=== PATIENT | female | born 1940 | race Caucasian/White ===

== ENCOUNTER 2025-02-21 13:00 | Outpatient (AMB) | payer OTHER, SELFPAY ==
--- NOTE | 2025-02-21 13:28 | A.OFFPC_ITS ---
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 Intake Note: New patient visit Supervisor [place] Required: No Accompanied by: Son Allergies No Known Allergies Allergy (Verified 02/21/25 13:33) Medication List - Last Reconciled 02/21/25 by Frances Ledezma PA-C apixaban (Eliquis) 5 mg PO BID biotin PO DAILY cholecalciferol (vitamin D3) PO DAILY furosemide 20 mg PO DAILY levothyroxine 125 mcg PO DAILY mecobalamin (vitamin B12) PO DAILY metoprolol succinate ER 50 mg PO DAILY simvastatin 20 mg PO BEDTIME Tobacco use date assessed: 02/21/25 Fall risk assessment: No Falls in past year Last assessed Fall Risk: 02/21/25 Dental Screening Dental Screen Date: 02/21/25 Did you have a dental visit in the last 12 months?: No Did you have a dental problem in the last 6 months where you did not have access to dental care?: No Was dental information given to patient?: Patient has dentist HPI 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 She has hx of htn, hld, afib, prior cva (approximately 2014), s/p partial colectomy due to colon cancer - no records yet -accompanied today by her son GI: nov 2024 had colon ca and s/p partial resection. Followed with Dr. Marcos. heme/onc: colon ca dx nov 2024- no further treatment. No records today but we will get me records. A release was signed today. CV: hx of afib on ac, bp today is 102/58. Patient's daughter states that she had an ablation within the year but got lost to follow up with Cardiology as she was doing most of her own visits by herself and there was some confusion around her diagnoses and treatment plans. She does not notice any palpitations or shortness on breath. She overall feels well. She believes she was following with [facility]. She is on metoprolol 50 mg daily, furosemide 20 mg daily , Eliquis 5 mg twice a day and is on simvastatin 20 mg. Unsure of when she last had labs. No frequent falls. Feels safe at home. Endo: Unaware of the diagnosis of hypothyroidism but on levothyroxine 125 mcg. Unsure of last TSH. [facility] Surgical History (Updated 02/21/25 @ 13:57 by Lucie Moon CMA) H/O gastric sleeve Family History (Updated 02/21/25 @ 13:56 by Lucie Moon CMA) Other Family history unknown Social History (Updated 02/21/25 @ 14:03 by Lucie Moon CMA) Housing: House Alcohol intake: current Patient Tobacco Use Status: Never used Tobacco e-Cigarette/Vaping Use: Never Used Second Hand Smoke Exposure: No service: No Current occupational status: retired Cognitive needs: No Hearing needs: No Vision needs: No Questionnaire PHQ-9 Over the last 2 weeks, how often have you been bothered by any of the following problems? 1. Little interest or pleasure in doing things: not at all 2. Feeling down, depressed, or hopeless: not at all 3. Trouble falling or staying asleep, or sleeping too much: not at all 4. Feeling tired or having little energy: several days 5. Poor appetite or overeating: not at all 6. Feeling bad about yourself - or that you are a failure or have let yourself or your family down: not at all 7. Trouble concentrating on things, such as reading the newspaper or watching television: not at all 8. Moving or speaking so slowly that other people could have noticed. Or the opposite - being so fidgety or restless that you have been moving around a lot more than usual: not at all 9. Thoughts that you would be better off or of hurting yourself in some way: not at all Total score: 1 Depression Screening Interpretation: Negative Depression Screening Done: Yes 81537 - PHQ-9 Billing: Yes Source: Developed by Drs. Doyle Christianson, Poonam Orozco, Alfonzo Piña and colleagues, with an educational leah from [employer]. Thrive Questionnaire Date Thrive assessed: 02/21/25 I am a: Patient What is your living situation today?: I have a steady place to live Within the past 12 months, did the food you bought not last and you didn't have the money to get more?: Never true Within the past 12 months, did you worry whether your food would run out before you got money to buy more?: Never true Do you have trouble paying for medicines?: Yes Do you have trouble getting transportation to medical appointments?: No Do you have trouble paying your heating and electricity bill?: No Do you have trouble taking care of your child, family member or friend?: No Do you have trouble with day-to-day activities such as bathing, preparing meals, shopping, managing finances, etc.?: No Are you currently unemployed and looking for a job?: No Are you interested in more education?: No Please select the resources that you would like help with: Paying for medicine Currently or been in a relationship where the following occur: No concerns reported THRIVE Score: 0 AUDIT C Alcohol Use Questionnaire (AUDIT-C) 1. How often do you have a drink containing alcohol?: 4 or more times a week 2. How many drinks containing alcohol do you have on a typical day when you are drinking?: 1 or 2 3. How often do you have six or more drinks on one occasion?: Never Total Score: 4 MARCELINA-7 AMB Questionnaire MARCELINA-7 Date MARCELINA - 7 assessed: 02/21/25 Feeling nervous, anxious, or on edge: 0 = Not at all Not being able to stop or control worryin = Not at all Worrying too much about different things: 0 = Not at all Trouble relaxin = Not at all Being so restless that it is hard to sit still: 0 = Not at all Becoming easily annoyed or irritable: 0 = Not at all Feeling afraid as if something awful might happen: 0 = Not at all Total MARCELINA-7 score (0-4 normal; 5-9 mild; 10-14 moderate; 15-21 severe): 0 Source: Developed by Drs. Doyle Christianson, Poonam Orozco, Alfonzo Piña and colleagues, with an educational leah from [employer]. MARCELINA-7 Assessment Billing MARCELINA-7 Assessment Tool: MARCELINA-7 Assessment 63204 Physical exam (Primary Care) Vital Signs: Last Vital Signs Temp 97.7 F 02/21/25 13:38 Pulse 67 02/21/25 13:38 Resp 14 05/07/25 13:38 BP 102/58 L 02/21/25 13:38 Pulse Ox 97 02/21/25 13:38 Oxygen Delivery Method Room Air 02/21/25 13:38 BMI result Body Mass Index 34.7 Tobacco/Smoking Status: Tobacco use Status Tobacco use date assessed 02/21/25 02/21/25 13:43 Patient Tobacco Use Status Never used Tobacco 02/21/25 14:03 e-Cigarette/Vaping Use Never Used 02/21/25 14:03 PHQ-9: PHQ-9 Score PHQ-9: Total score 1 02/21/25 14:00 Depression Screening Interpretation: Negative Thrive Assessment: Date of Thrive Assessment Date Thrive assessed 02/21/25 02/21/25 14:00 Currently or been in a relationship where the following occur: No concerns reported Const Orientation/consciousness: patient oriented x3 HENMT Ears: hearing grossly normal bilaterally Neck Thyroid: Thyroid normal Lymphatic: no lymphadenopathy noted Resp Auscultation: clear to auscultation bilaterally Cardio Rate: regular rate Rhythm: regular rhythm Heart sounds: S1 normal heart sound present, S2 normal heart sound present and Murmur heart sound present GI Inspection: Yes normal to inspection Palpation (GI): Soft to palpation and Other GI palpation findings present (nontender, no cva tenderness) Auscultation: normoactive bowel sounds Rectal Exam - Female: deferred Skin General skin exam: no rashes or lesions noted Neuro General: patient oriented x3, gait normal and no focal motor deficits Coding Level of Care Code New Pt Level 3 (36066) Complex EM visit Add On G2211 Diagnoses Afib I48.91 Dyslipidemia E78.5 Hypothyroid E03.9 HTN (hypertension) I10 Additional Codes MARCELINA-7 Assessment Billing - MARCELINA-7 Assessment Tool: MARCELINA-7 Assessment 16635 ([id number]) PHQ-9 - 98705 - PHQ-9 Billing: Yes ([id number]) Assessment & Plan Assessment & Plan (1) Afib: Code(s): I48.91 - Unspecified atrial fibrillation Category: Medical Plan: Referral back to [facility]iology. Did discuss with her that blood pressure is low end normal today. We will monitor. Short term follow up. Labs ordered. She will continue with her current regimen. Medications refilled. (2) Dyslipidemia: Code(s): E78.5 - Hyperlipidemia, unspecified Category: Medical Plan: As above (3) Hypothyroid: Code(s): E03.9 - Hypothyroidism, unspecified Category: Medical Plan: TSH ordered. Refilled levothyroxine 125 mcg (4) HTN (hypertension): Code(s): I10 - Essential (primary) hypertension Category: Medical Plan: Discussed that she is a little hypotensive today but we will monitor and recheck. Orders: Orders Hemoglobin A1c 02/21/25 E03.9 - Hypothyroidism, unspecified, E78.5 - Hyperlipidemia, unspecified, I10 - Essential (primary) hypertension, I48.91 - Unspecified atrial fibrillation, R73.01 - Impaired fasting glucose, Z85.038 - Personal history of other malignant neoplasm of large intestine Lipid Panel 02/21/25 E03.9 - Hypothyroidism, unspecified, E78.5 - Hyperlipidemia, unspecified, I10 - Essential (primary) hypertension, I48.91 - Unspecified atrial fibrillation, Z85.038 - Personal history of other malignant neoplasm of large intestine UA CC w/rflx Micro + Cult 02/21/25 E03.9 - Hypothyroidism, unspecified, E78.5 - Hyperlipidemia, unspecified, I10 - Essential (primary) hypertension, I48.91 - Unspecified atrial fibrillation, Z13.220 - Encounter for screening for lipoid disorders, Z85.038 - Personal history of other malignant neoplasm of large intestine Complete Blood Count Auto Diff 02/21/25 E03.9 - Hypothyroidism, unspecified, E78.5 - Hyperlipidemia, unspecified, I10 - Essential (primary) hypertension, I48.91 - Unspecified atrial fibrillation, Z85.038 - Personal history of other malignant neoplasm of large intestine Comprehensive Met. Panel 02/21/25 E03.9 - Hypothyroidism, unspecified, E78.5 - Hyperlipidemia, unspecified, I10 - Essential (primary) hypertension, I48.91 - Unspecified atrial fibrillation, Z85.038 - Personal history of other malignant neoplasm of large intestine TSH reflex Free T4 02/21/25 E03.9 - Hypothyroidism, unspecified, E78.5 - Hyperlipidemia, unspecified, I10 - Essential (primary) hypertension, I48.91 - Unspecified atrial fibrillation, Z85.038 - Personal history of other malignant neoplasm of large intestine Referrals Cardiology Referral E78.5 - Hyperlipidemia, unspecified, I10 - Essential (primary) hypertension, I48.91 - Unspecified atrial fibrillation Medications: New furosemide 20 mg PO DAILY 90 tabs 3RF levothyroxine 125 mcg PO DAILY 90 tabs 3RF simvastatin 20 mg PO BEDTIME 90 tabs 3RF apixaban (Eliquis) 5 mg PO BID 180 tabs 0RF metoprolol succinate ER 50 mg PO DAILY 90 tabs 2RF Patient Instructions: address:?[address] [place] [address] [address], [place] [address] Phone:? [facility] cardiology
[2025-02-21 13:38] VITALS: BP 102/58; PULSE 67; RESP 14; TEMP 36.5; O2SAT 97; BMI 34.7
--- OUTSIDE RECORDS SUMMARY | 2025-02-21 14:14 | XMS_ITS | Clinical Summary ---
Author Organization [facility] [address] [place] [address] [place] [phone] Phone Care Team Providers Care Analyst Market Intelligence Name Role Phone Unavailable Primary Care Provider Unavailabl e Allergies Active Allergy Reactions Criticality Noted Date Comments Codeine Headache 09/28/2006 Medications potassium chloride 20 mEq tablet extended release Take 1 tablet by mouth 1 (one) time each day. 4 Active cyclobenzaprine (FLEXERIL) 5 mg tablet Take 1 tablet (5 mg total) by mouth 3 (three) times a day if needed. 4 Active calcium carbonate-vit D3-min 600 mg-10 mcg (400 unit) tablet Take 1 tablet by mouth 1 (one) time each day. 6 Active cyanocobalamin (VITAMIN B-12) 1,000 mcg tablet Take 1 tablet (1,000 mcg total) by mouth 1 (one) time each day. 6 Active ascorbic acid (VITAMIN C) 500 mg tablet Take 1 tablet (500 mg total) by mouth 1 (one) time each day. 2 Active glucosamine/chond ro griffin A/C/Mn (GLUCOSAMINE-MICHAEL DROITIN COMPLX ORAL) Take 1 capsule by mouth 1 (one) time each day. 6 Active multivitamin (Daily Multi-Vitamin) tablet Take 1 tablet by mouth 1 (one) time each day. 2 Active furosemide (LASIX) 20 mg tabletIndications :Paroxysmal atrial fibrillation (CMS/HCC V24, CMS/HCC V28),Essential (primary) hypertension TAKE 1 TABLET BY MOUTH TWICE A DAY 180 tablet 3 4 Active metoprolol succinate (TOPROL-XL) 50 mg 24 hr tablet Take 1 tablet (50 mg total) by mouth 1 (one) time each day. 90 tablet 1 4 Active amiodarone (PACERONE) 200 mg tablet Take 0.5 tablets (100 mg total) by mouth 1 (one) time each day. 90 tablet 1 4 Active levothyroxine (SYNTHROID, LEVOTHROID) 125 mcg tablet Take 1 tablet (125 mcg total) by mouth 1 (one) time each day. 90 tablet 1 4 Active apixaban (Eliquis) 5 mg tablet Take 1 tablet (5 mg total) by mouth 2 (two) times a day. 180 tablet 1 4 Active KLOR-CON 20 mEq CR tablet TAKE 1 TABLET BY MOUTH EVERY DAY 90 tablet 5 Active simvastatin (ZOCOR) 20 mg tablet Take 1 tablet (20 mg total) by mouth 1 (one) time each day. 90 tablet 5 Active Active Problems Problem Noted Date Diagnosed Date Lymphedema 06/12/2024 Snoring 06/12/2024 Lower leg edema 03/09/2024 Gait instability 11/04/2023 Iliotibial band syndrome of right side 4 Tendinitis involving right hip abductors 024 Trochanteric bursitis of right hip 11/04/2023 Atrial flutter (CMS/HCC V24, CMS/HCC V28) 2022 Overview (09/28/2024): Last Assessment & Plan: The patient has a history of paroxysmal atrial fibrillation for which she was started on antiarrhythmic therapy with amiodarone around the year 2015. The amiodarone had been successful in controlling her atrial fibrillation. However, more recently, the patient was noted to be in atrial flutter. As such, we attempted an antico cardioversion on 06/14/2023 which was successful in restoring a sinus rhythm. However, on today's visit, the patient was noted to be again in atrial flutter. Her heart rate is currently well controlled with the use of amiodarone and metoprolol. At this point, we will refer the patient for an evaluation with the electrophysiology service for consideration of a possible ablation given her recurrent atrial flutter despite a cardioversion attempt while on amiodarone. Hypertension 02/24/2022 Overview (09/28/2024): Last Assessment & Plan: The patient has a history of arterial hypertension. The patient's blood pressure today was noted to be well controlled. We'll continue the current antihypertensive medication regimen. Onychomycosis 09/08/2019 Hypothyroidism 10/03/2018 Chronic kidney disease (CKD) stage G3a/A1, moderately decreased glomerular filtration rate (GFR) between 45-59 mL/min/1.73 square meter and albuminuria creatinine ratio les* ([facility] V24, [facility] V28) 06/21/2018 Vitamin D deficiency 03/29/2018 Paroxysmal atrial fibrillation ([facility] V24, [facility] V28) 10/14/2016 Overview (09/28/2024): Last Assessment & Plan: The patient has a history of paroxysmal atrial fibrillation for which she was started on rhythm control therapy around the year 2015. The amiodarone has been successful in controlling her atrial fibrillation. She is also on rate control therapy with metoprolol. The patient is also on anticoagulation therapy with Eliquis 5 mg orally twice a day given her [id number] score of 6. As such, at this point, we will continue her current medication regimen. DJD (degenerative joint disease) of knee 015 Varicose veins of both lower extremities 009 Immunizations Name Administration Dates Next Due Influenza trivalent, 0.5mL (Fluad) 65yo and olde r 07/05/2023,08/04/2022 Pneumococcal conjugate 13 va lent (Prevnar 13, PCV13) 2mo and older 11/09/2017 Pneumococcal polysaccharide 23 valent (Pneumovax 23) 2yo and older 09/10/2015 Td Tetanus diptheria (Tdvax) 7yo and older 09/04 Surgical History Surgery Date Site/Laterality Comments TUBAL LIGATION PROCEDURE: HISTORICAL TUBAL LIGATION OTHER SURGICAL HISTORY PROCEDURE: HISTORY OTHER; COMMENT: lap band for bariatric surgery TONSILLECTOMY PROCEDURE: HISTORICAL TONSILLECTOMY HYSTERECTOMY PROCEDURE: HISTORICAL HYSTERECTOMY COLONOSCOPY 1998 PROCEDURE: HISTORICAL COLONOSCOPY; COMMENT: small rectal polyp COLONOSCOPY 04/28/2019 PROCEDURE: HISTORICAL COLONOSCOPY; COMMENT: negative screening exam. Medical History Medical History Date Comments History of squamous cell car cinoma of skin 07/30/2017 DX:History of squamous cell carcinoma of skin History of bariatric surgery 09/27/2018 DX: History of bariatric surgery; COMMENT: Lap band Chronic kidney disease (CKD) stage G3a/A1, moderately decreased glomerular filtration rate (GFR) between 45-59 mL/min/1.73 square meter and albuminuria creatinine ratio les* ([facility] V24, [facility] V28) 06/21/2018 DX:Chronic kidne y disease (CKD) stage G3a/A1, moderately decreased glomerular filtration rate (GFR) between 45-59 mL/min/1.73 square meter and albuminuria creatinine ratio less than 30 mg/g ([facility]) DJD (degenerative joint dise ase) of knee 09/10/2015 DX:DJD (degenerative joint d isease) of knee History of CVA (cerebrovascu lar accident) 11/09/2017 DX:History of CVA (cerebrova scular accident) Paroxysmal atrial fibrillati on ([facility] V24, [facility] V28) 10/14/2016 DX:Paroxysmal atrial fibril lation ([facility]) Varicose veins 08/27/2009 DX:Varicose vein s Vitamin D deficiency 03/29/2018 DX:Vitamin D deficiency Family History Medical History Relation Name Comments Breast cancer Neg Hx Relation Name Status Comments Father Mother Social History Tobacco Use Types Packs/Day Years Used Date Smoking Tobacco: Never Smokeless Tobacco: Never Alcohol Use Standard Drinks/Week Comments Yes 0 (1 standard drink = 0.6 oz pur e alcohol) Comments No Sex and Gender Information Value Date Recorded Sex Assigned at Not on file Legal Sex Female 12:23 PM EST Gender Identity Not on file Sexual Orientation Not on file Obstetrics History Para Term AB IAB SAB Ectopic Multiple Livin g Live Births 4 4 4 4 Date Outcome GA Total Labor Labor/2nd/3rd Weight Sex Type Anes PTL Xenia A1 A5 Name Clin Term Term Term Term Last Filed Vital Signs Vital Sign Reading Time Taken Comments Blood Pressure 126/49 08/15/2024 1:35 PM EDT Pulse 71 08/15/2024 1:35 PM EDT Temperature - - Respiratory Rate - - Oxygen Saturation - - Inhaled Oxygen Concentration - - Weight 91.2 kg (201 lb) 08/15/2024 1:35 PM EDT Height 167.6 cm (5' 6 ) 08/15/2024 1:35 PM EDT Body Mass Index 32.44 08/15/2024 1:35 PM EDT Plan of Treatment Health Maintenance Due Date Last Done Comments Zoster Vaccines (1 of 2) 1961 RSV Immunization Adult Patients (1 - 1-dose 75+ series) 2017 Depression Screening 09/26/2022 Falls Risk Assessment 09/26/2022 Medicare Annual Wellness Visit 09/26/2022 Social Influencers of Health Screening 09/26/2022 COVID-19 Vaccine ( season) 2024 10/22/2022, 01/22/2022, 08/15/2021, Additional history exists Hypertension/CHF/CAD Annual BMP Blood Test 06/09/2025 06/09/2024, 06/09/2024 Influenza Vaccine (Season Ended) 2025 07/05/2023, 08/04/2022, 07/30/2021, Additional history exists Cholesterol Screening (Lipid Panel) 05/11/2028 05/11/2023 DTaP,Tdap,and Td Vaccines (2 - Td or Tdap) 09/04/2030 09/04/2020 Osteoporosis Screening (Bone Density Screening) 11/11/2030 11/11/2020 Pneumococcal Vaccine: 50+ Years Completed 07/25/2020, 11/09/2017, 09/10/2015 HIB Vaccines Aged Out No longer eligi ble based on patient's age to complete this topic HPV Vaccines Aged Out No longer eligi ble based on patient's age to complete this topic Hepatitis A Vaccines Aged Out No long er eligible based on patient's age to complete this topic Hepatitis B Vaccines Aged Out No long er eligible based on patient's age to complete this topic IPV Vaccines Aged Out No longer eligi ble based on patient's age to complete this topic MMR Vaccines Aged Out No longer eligi ble based on patient's age to complete this topic Meningococcal ACWY Vaccine Aged Out N o longer eligible based on patient's age to complete this topic Meningococcal B Vaccine Aged Out No l onger eligible based on patient's age to complete this topic RSV Immunization Patients Under 20 months Aged Out No longer eligible based on patient's age to complete this topic Varicella Vaccines Aged Out No longer eligible based on patient's age to complete this topic Procedures Procedure Name Priority Date/Time Associated Diagnosis Comments ANNUAL BMP BLOOD TEST Routine 06/09/2024 LIPID PANEL Routine 05/11/2023 DXA BONE DENSITY STUDY 1+ SITS AXIAL SKEL Routine 11/11/2020 11:44 AM EST Bilateral primary osteoarthritis of knee from Last 3 Months or Most Recently Relevant to Health Maintenance Results * Annual BMP Blood Test (06/09/2024) Annual BMP Blood Test Abstracted Historical Provider HEALTH MAINTENANCE Final Result * Lipid panel (05/11/2023) LDL/HDL Ratio 2 0 - 4 Triglycerides 117 0 - 150 mg/dL Cholesterol 142 0 - 200 mg/dL HDL 84 >=40 mg/dL LDL Cholesterol 35 0 - 100 mg/dL Blood Venous blood specimen / Unknown Historical Provider LAB BLOOD ORDERABLES Carmen l Result * DXA BONE DENSITY STUDY 1+ SITS AXIAL SKEL (11/11/2020 11:44 AM EST) Anatomical Region Laterality Modality Bone Densitometr y 09/04/2020 3:36 PM EST Narrative 11/11/2020 5:37 PM EST BONE DENSITY SCAN (DEXA): FINDINGS: Lumbar Spine L3 and L4, L1 and L2 excluded due to superimposed catheter tubing and reservoir from bariatric surgery. T-score is 0.8. ?? (SD relative to 20-29 y/o adult) Z-score is 3.5. ??(SD relative to age matched peers) This is considered normal by WHO criteria. Left Hip T-score is -0.2. Z-score is 2.1. This is considered normal by WHO criteria. Left Forearm T-score is 0.692. Z-score is 2.9. This is considered normal by WHO criteria. Comparison exam(s): None. IMPRESSION: IMPRESSION: ?? Normal bone mineral density by WHO criteria. FRAX scores not able to be calculated. The [facility] Department of Internal Medicine recommends using National Osteoporosis Foundation (NOF) guidelines in treatment decisions related to osteoporosis. NOF guidelines suggest considering treatment for postmenopausal women and men aged 50 or older presenting with the following: History of hip or vertebral fracture. T-score = -2.5 (DXA) at the femoral neck, total hip, or spine, after appropriate evaluation to exclude secondary causes. Low bone mass (T-score between -1.0 and -2.5 at the femoral neck or spine) AND a 10-year probability of a hip fracture = 3% OR a 10-year probability of a major osteoporosis-related fracture = 20% based on the [place]-adapted WHO algorithm Please note that all treatment decisions require clinical judgment and consideration of individual patient factors, including patient preferences, co-morbidities, previous drug use, risk factors not captured in the FRAX model (e.g., frailty, falls, vitamin D deficiency, increased bone turnover, interval significant decline in bone density) and possible under- or over-estimation of fracture risk by FRAX. Optional alternative screening schedule based on fabiano Glass., [facility] November 05, 2011 for patients with osteopenia (based on hip BMD T-score) is as follows: * ??advanced osteopenia (T scores -2.00 to -2.49), BMD testing every year * ??moderate osteopenia (T scores -1.50 to -1.99), BMD testing every 5 years mild osteopenia or normal BMD (T scores -1.50 and higher), BMD testing every 15 years Procedure Note Estefanía Sexton MD - 10/22/2022 BONE DENSITY SCAN (DEXA): FINDINGS: Lumbar Spine L3 and L4, L1 and L2 excluded due to superimposed cathetertubing and reservoir from bariatric surgery. T-score is 0.8. (SD relative to 20-29 y/o adult) Z-score is 3.5. (SD relative to age matched peers) This is considered normal by WHO criteria. Left Hip T-score is -0.2. Z-score is 2.1. This is considered normal by WHO criteria. Left Forearm T-score is 0.692. Z-score is 2.9. This is considered normal by WHO criteria. Comparison exam(s): None. IMPRESSION: IMPRESSION: Normal bone mineral density by WHO criteria. FRAX scores not able to be calculated. [facility] Department of Internal Medicine recommendsusing National Osteoporosis Foundation (NOF) guidelines in treatment decisions related toosteoporosis. NOF guidelines suggest considering treatment for postmenopausal women and menaged 50 or older presenting with the following: History of hip or vertebral fracture. T-score = -2.5 (DXA) at the femoral neck, total hip, or spine, afterappropriate evaluation to exclude secondary causes. Low bone mass (T-score between -1.0 and -2.5 at the femoral neck or spine)AND a 10-year probability of a hip fracture = 3% OR a 10-year probability of a majorosteoporosis-related fracture = 20% based on the [place]-adapted WHO algorithm Please note that all treatment decisions require clinical judgment andconsideration of individual patient factors, including patient preferences, co- morbidities,previous drug use, risk factors not captured in the FRAX model (e.g., frailty, falls, vitaminD deficiency, increased bone turnover, interval significant decline in bone density) andpossible under- or over-estimation of fracture risk by FRAX. Optional alternative screening schedule based on fabiano Glass., [facility] for patients with osteopenia (based on hip BMD T-score) is as follows: * advanced osteopenia (T scores -2.00 to -2.49), BMD testing every year * moderate osteopenia (T scores -1.50 to -1.99), BMD testing every 5years mild osteopenia or normal BMD (T scores -1.50 and higher), BMD testingevery 15 years Luly Castro MD Traci DXA PROCEDURES Carmen jorge Result from Last 3 Months or Most Recently Relevant to Health Maintenance Insurance [employer]ARE [employer]AGE
== END 2025-02-21 14:19 | disposition home or self-care (01) ==
LOC: HO.HMCFM 13:01
PROVIDERS: PCP Physician Assistant; Visit Provider Physician Assistant
DX: I48.91 Unspecified atrial fibrillation (principal); E78.5 Hyperlipidemia, unspecified; E03.9 Hypothyroidism, unspecified; I10 Essential (primary) hypertension

== ENCOUNTER → 2025-02-21 13:00 | Outpatient (BNVA) | payer OTHER, SELFPAY | PROVIDERS: PCP Physician Assistant; Visit Provider Physician Assistant | DX: Z76.89 Persons encountering health services in other specified circumstances (principal); I48.91 Unspecified atrial fibrillation; E78.5 Hyperlipidemia, unspecified; E03.9 Hypothyroidism, unspecified; I10 Essential (primary) hypertension; Z79.01 Long term (current) use of anticoagulants; Z79.899 Other long term (current) drug therapy | CPT/HCPCS: 96127 ==

== ENCOUNTER 2025-03-21 12:47 | Outpatient (AMB) | payer OTHER, SELFPAY ==
--- NOTE | 2025-03-21 13:04 | MHC.PC.OV ---
Vital Signs 03/21/25 13:06 Height 5 ft 1.81 in Weight 190 lb BMI 35.0 BP 104/58 L Blood Pressure Location Lt brachial Position Sitting Respiration 14 Pulse 69 Pulse Source Pulse Oximeter Pulse Oximetry (%) 97 Oxygen Delivery Method Room Air Intake Visit Reasons: bp Intake Note: Blood pressure follow up Human Resources District Manager Required: No Allergies codeine Allergy (Intermediate, Verified 03/21/25 13:05) Swelling Medication List - Last Reconciled 03/21/25 by Frances Ledezma PA-C apixaban (Eliquis) 5 mg PO BID biotin PO DAILY cholecalciferol (vitamin D3) PO DAILY ferrous sulfate ER mg PO furosemide 20 mg PO DAILY levothyroxine 125 mcg PO DAILY mecobalamin (vitamin B12) PO DAILY metoprolol succinate ER 50 mg PO DAILY simvastatin 20 mg PO BEDTIME Tobacco use date assessed: 03/21/25 Fall risk assessment: No Falls in past year Last assessed Fall Risk: 03/21/25 Dental Screening Dental Screen Date: 03/21/25 Did you have a dental visit in the last 12 months?: Yes Did you have a dental problem in the last 6 months where you did not have access to dental care?: No Was dental information given to patient?: Patient has dentist HPI bp HPI Details Pt is an 84 y/o female who presents today for a follow up. She has hx of htn, hld, afib, prior cva (approximately 2014), s/p partial colectomy due to colon cancer -she forgot to get labs done today GI: nov 2024 had colon ca and s/p partial resection. Followed with Dr. Marcos. She does not have a follow up scheduled with her to her knowledge. heme/onc: colon ca dx nov 2024- no further treatment. No records today but we will get me records. CV: hx of afib on ac, bp today is 104/58. Patient's daughter states that she had an ablation within the year but got lost to follow up with Cardiology as she was doing most of her own visits by herself and there was some confusion around her diagnoses and treatment plans. She does not notice any palpitations or shortness on breath. She overall feels well. She believes she was following with [facility]. She is on metoprolol 50 mg daily, furosemide 20 mg daily , Eliquis 5 mg twice a day and is on simvastatin 20 mg. Unsure of when she last had labs. No frequent falls. Feels safe at home. Endo: Unaware of the diagnosis of hypothyroidism but on levothyroxine 125 mcg. Unsure of last TSH. Mammo: Does not want PFSH Surgical History (Updated 02/21/25 @ 13:57 by Lucie Moon CMA) H/O gastric sleeve Family History (Updated 02/21/25 @ 13:56 by Lucie Moon CMA) Other Family history unknown Social History (Updated 02/21/25 @ 14:03 by Lucie Moon CMA) Housing: House Alcohol intake: current Patient Tobacco Use Status: Never used Tobacco e-Cigarette/Vaping Use: Never Used Second Hand Smoke Exposure: No service: No Current occupational status: retired Cognitive needs: No Hearing needs: No Vision needs: No Questionnaire Thrive Questionnaire Date Thrive assessed: 02/21/25 I am a: Patient What is your living situation today?: I have a steady place to live Within the past 12 months, did the food you bought not last and you didn't have the money to get more?: Never true Within the past 12 months, did you worry whether your food would run out before you got money to buy more?: Never true Do you have trouble paying for medicines?: Yes Do you have trouble getting transportation to medical appointments?: No Do you have trouble paying your heating and electricity bill?: No Do you have trouble taking care of your child, family member or friend?: No Do you have trouble with day-to-day activities such as bathing, preparing meals, shopping, managing finances, etc.?: No Are you currently unemployed and looking for a job?: No Are you interested in more education?: No Please select the resources that you would like help with: Paying for medicine Currently or been in a relationship where the following occur: No concerns reported THRIVE Score: 0 MARCELINA-7 AMB Questionnaire MARCELINA-7 Date MARCELINA - 7 assessed: 02/21/25 Source: Developed by Drs. Doyle Christianson, Poonam Orozco, Alfonzo Piña and colleagues, with an educational leah from [employer]. Physical exam (Primary Care) Vital Signs: Last Vital Signs Pulse 69 03/21/25 13:06 Resp 14 03/21/25 13:06 BP 104/58 L 03/21/25 13:06 Pulse Ox 97 03/21/25 13:06 Oxygen Delivery Method Room Air 03/21/25 13:06 BMI result Body Mass Index 35.0 Tobacco/Smoking Status: Tobacco use Status Tobacco use date assessed 02/21/25 02/21/25 13:43 Patient Tobacco Use Status Never used Tobacco 02/21/25 14:03 e-Cigarette/Vaping Use Never Used 02/21/25 14:03 Thrive Assessment: Date of Thrive Assessment Date Thrive assessed 02/21/25 02/21/25 14:00 Currently or been in a relationship where the following occur: No concerns reported Const Orientation/consciousness: patient oriented x3 HENMT Ears: hearing grossly normal bilaterally Neck Thyroid: Thyroid normal Lymphatic: no lymphadenopathy noted Resp Auscultation: clear to auscultation bilaterally Cardio Rate: regular rate Rhythm: regular rhythm Heart sounds: S1 normal heart sound present and S2 normal heart sound present GI Inspection: Yes normal to inspection Palpation (GI): Soft to palpation and Other GI palpation findings present (nontender, no cva tenderness) Auscultation: normoactive bowel sounds Rectal Exam - Female: deferred Skin General skin exam: no rashes or lesions noted Neuro General: patient oriented x3, gait normal and no focal motor deficits Coding Level of Care Code Est Pt Level 4 (06600) Complex EM visit Add On G2211 Diagnoses HTN (hypertension) I10 Hypothyroid E03.9 Dyslipidemia E78.5 Afib I48.91 History of colon cancer Z85.038 Assessment & Plan Assessment & Plan (1) HTN (hypertension): Code(s): I10 - Essential (primary) hypertension Category: Medical (2) Hypothyroid: Code(s): E03.9 - Hypothyroidism, unspecified Category: Medical (3) Dyslipidemia: Code(s): E78.5 - Hyperlipidemia, unspecified Category: Medical (4) Afib: Code(s): I48.91 - Unspecified atrial fibrillation Category: Medical (5) History of colon cancer: Code(s): Z85.038 - Personal history of other malignant neoplasm of large intestine Category: Medical Plan Reviewed note from [facility] with patient today in the office. She is not accompanied by any family members. She was provided the name, phone number and addresses of Cardiology and Colorectal surgery. She says that she does not need any assistance with booking these. She will get her labs done today. We will continue current regimen and follow up in a few months. Orders: Referrals Colon & Rectal Referral Z85.038 - Personal history of other malignant neoplasm of large intestine Patient Instructions: address:?[address] [place] [address] [address], [place] [address] Phone:? [facility] cardiology
[2025-03-21 13:06] VITALS: BP 104/58; PULSE 69; RESP 14; O2SAT 97; BMI 35.0
--- OUTSIDE RECORDS SUMMARY | 2025-03-21 13:13 | XMS_ITS | Clinical Summary ---
Author Organization [facility] [address] [place] [address] [place] [phone] Phone Care Team Providers Care Dot Etcher Name Role Phone Unavailable Primary Care Provider [...] creatinine ratio les* ([facility] V24, [facility] V28) 06/21/2018 Vitamin D deficiency 03/29/2018 Paroxysmal atrial fibrillation ([facility] V24, [facility] V28) 10/14/2016 Overview (09/28/2024): Last Assessment & [...] mg orally twice a day given her [id number]-RKSo score of 6. As such, at this [...] creatinine ratio les* ([facility] V24, [facility] V28) 06/21/2018 DX:Chronic kidne y disease (CKD) stage G3a/A1, moderately decreased glomerular filtration rate (GFR) between 45-59 mL/min/1.73 square meter and albuminuria creatinine ratio less than 30 mg/g ([facility]) DJD (degenerative joint dise ase) of knee 09/10/2015 DX:DJD (degenerative joint d isease) of knee History of CVA (cerebrovascu lar accident) 11/09/2017 DX:History of CVA (cerebrova scular accident) Paroxysmal atrial fibrillati on ([facility] V24, [facility] V28) 10/14/2016 DX:Paroxysmal atrial fibril lation ([facility]) Varicose veins 08/27/2009 DX:Varicose vein s Vitamin [...] scores not able to be calculated. The [facility] Department of Internal Medicine recommends using National [...] alternative screening schedule based on fabiano Glass., [facility] November 05, 2011 for patients with osteopenia [...] scores not able to be calculated. The [facility] Department of Internal Medicine recommendsusing National Osteoporosis [...] alternative screening schedule based on fabiano Glass., [facility]January 2011 for patients with osteopenia (based on [...]
== END 2025-03-21 13:29 | disposition home or self-care (01) ==
LOC: HO.HMCFM 12:48
PROVIDERS: PCP Physician Assistant; Visit Provider Physician Assistant
DX: I10 Essential (primary) hypertension (principal); E03.9 Hypothyroidism, unspecified; E78.5 Hyperlipidemia, unspecified; I48.91 Unspecified atrial fibrillation; Z85.038 Personal history of other malignant neoplasm of large intestine

== ENCOUNTER → 2025-03-21 12:47 | Outpatient (BNVA) | payer OTHER, SELFPAY | PROVIDERS: PCP Physician Assistant; Visit Provider Physician Assistant ==

== ENCOUNTER 2025-03-21 13:51 | Outpatient (REF) | payer OTHER, SELFPAY ==
[2025-03-21 17:53] LABS: MANUAL DIFF FLAG NO
[2025-03-21 18:10] LABS: Basophils Percent Auto 0.9 % (0-2); Eosinophils Absolute Auto 0.3 X10*3/uL (0.0-0.4); Hematocrit 37.8 % (37.0-47.0); Hemoglobin 11.7 g/dl (12.0-16.0); Imm Gran Abs Auto 0.01 X10*3/uL (0.00-0.03); Imm Gran Pct Auto 0.2 % (0.0-0.4); Lymphocytes Absolute Auto 1.3 X10*3/uL (1.2-4.9); Lymphocytes Percent Auto 27.4 % (20-40); Mean Corpuscular Hemoglobin 27.3 pg (27.0-33.0); Mean Corpuscular Volume 88.3 fL (80.0-98.0); Mean Platelet Volume 12.2 fL (9.4-12.3); Monocytes Absolute Auto 0.4 X10*3/uL (0.1-1.2); Monocytes Percent Auto 9.2 % (2-11); Neutrophils Absolute Auto 2.6 x10*3/uL (2.0-8.3); Neutrophils Percent Auto 56.3 % (45-73); Platelet Count 173 X10*3/uL (160-400); Red Blood Count 4.28 X10*6/uL (4.20-5.50); Red Cell Distribution Width 14.8 % (11.0-16.0); White Blood Count 4.7 X10*3/uL (4.8-10.8)
[2025-03-21 18:21] LABS: Estimated Average Glucose 103 mg/dL; Hemoglobin A1C 104.1098 umol/L; Hemoglobin A1c % 5.2 % (<6.0)
[2025-03-21 18:26] LABS: Appearance Urine Clear; Color Urine Yellow; Glucose Urine UA Negative (Negative); Leukocyte Esterase Urine Trace (Negative); Nitrite Urine Negative (Negative); PH 5.5 (5.0-9.0); Specific Gravity - Urine 1.015 (1.005-1.025); UMIC TRIGGER UACC YES; Urine Blood Negative (Negative); Urine Ketones Negative (Negative); Urine Protein Negative (Neg-Trace)
[2025-03-21 18:29] LABS: Alanine Aminotransferase 14 U/L (0-31); Alkaline Phosphatase 78 U/L (39-117); Anion Gap 11 (12-20); Aspartate Amino Transferase 29 U/L (5-31); Bilirubin Total 0.8 mg/dL (0.0-1.0); Blood Urea Nitrogen 22 mg/dL (9-16); Calcium 9.1 mg/dL (8.4-10.2); Carbon Dioxide 29 mmol/L (22-29); Chloride 107 mmol/L (96-108); Cholesterol 143 mg/dL (<200); Estimated Glomerular Filt Rate 59; Glucose Random 96 mg/dL (60-115); HDL Cholesterol 72 mg/dL (>40); LDL Cholesterol Calculated 60 mg/dL (<100); Potassium 4.3 mmol/L (3.3-5.1); Sodium 143 mmol/L (135-145); Total Protein 7.7 g/dL (6.5-8.0); Triglycerides 55 mg/dL (<150)
[2025-03-21 18:32] LABS: Bacteria Urine None Seen (None Seen); RBC Urine 0-2 /HPF (0-2); Squamous Epithelial Cell Urine 0-2 /HPF (0-2); WBC Urine 0-5 /HPF (0-5)
[2025-03-21 18:47] LABS: TSH reflex Free T4 8.11 uIU/mL (0.32-4.0)
[2025-03-21 19:47] LABS: Free T4 (Free Thyroxine) 0.92 ng/dL (0.71-1.85)
== END 2025-03-21 13:52 | disposition home or self-care (01) ==
LOC: HO.WFDLDS 13:51
PROVIDERS: Visit Provider Physician Assistant
DX: R73.01 Impaired fasting glucose (principal); I48.91 Unspecified atrial fibrillation; E78.5 Hyperlipidemia, unspecified; E03.9 Hypothyroidism, unspecified; I10 Essential (primary) hypertension; Z85.038 Personal history of other malignant neoplasm of large intestine
CPT/HCPCS: 36415; 80053; 80061; 81001; 83036; 84439; 84443; 85025

== ENCOUNTER 2025-05-09 11:01 | Outpatient (REF) | payer MEDICARE, SELFPAY ==
--- NOTE | ~2025-05-09 | XR_ITS ---
EXAMINATION: XR CHEST CLINICAL INFORMATION: I48.91 - Unspecified atrial fibrillation COMPARISON: None available. TECHNIQUE: 2 views of the chest were obtained. FINDINGS: Lungs are hyperinflated. Pulmonary vascularity is indistinct without engorgement. Cardiac size is within normal limits. Trace fluid tracks along the major fissures. XR/XR chest 2V IMPRESSION: No acute disease Electronically signed by: Orville Lal MD 05/09/2025 12:58 PM EDT
[2025-05-09 12:31] LABS: MANUAL DIFF FLAG NO
--- OUTSIDE RECORDS SUMMARY | 2025-05-09 12:45 | XMS_ITS ---
Author Name [facility] Organization Unknown Care Team Organization Name Specialty Phone Email Start Date End Da te [facility] Sawyer Roy DO Primary Care 03/26/202305/18 [facility] Termed, PROVIDER Primary Care 08/25/202205/18
[2025-05-09 12:54] LABS: Hematocrit 38.2 % (37.0-47.0); Hemoglobin 12.1 g/dl (12.0-16.0); Imm Gran Abs Auto 0.01 X10*3/uL (0.00-0.03); Imm Gran Pct Auto 0.2 % (0.0-0.4); Lymphocytes Absolute Auto 1.4 X10*3/uL (1.2-4.9); Mean Corpuscular HGB Conc 31.7 g/dl (31.0-35.0); Mean Corpuscular Hemoglobin 27.6 pg (27.0-33.0); Mean Corpuscular Volume 87.2 fL (80.0-98.0); NRBC Abs Auto 0.000 X10*3/uL (0.0-0.012); NRBC Pct Auto 0.0 /100WBC (0.0-0.2); Platelet Count 167 X10*3/uL (160-400); Red Blood Count 4.38 X10*6/uL (4.20-5.50); White Blood Count 5.1 X10*3/uL (4.8-10.8)
[2025-05-09 14:20] LABS: Alanine Aminotransferase 19 U/L (0-31); Albumin Level 4.1 g/dL (3.5-5.0); Alkaline Phosphatase 82 U/L (39-117); Anion Gap 13 (12-20); Aspartate Amino Transferase 30 U/L (5-31); Blood Urea Nitrogen 18 mg/dL (9-16); Calcium 9.1 mg/dL (8.4-10.2); Carbon Dioxide 29 mmol/L (22-29); Chloride 105 mmol/L (96-108); Estimated Glomerular Filt Rate > 60; Potassium 4.6 mmol/L (3.3-5.1); Sodium 142 mmol/L (135-145); Total Protein 7.9 g/dL (6.5-8.0)
[2025-05-09 15:21] LABS: Free T4 (Free Thyroxine) 0.90 ng/dL (0.71-1.85)
== END 2025-05-09 11:02 | disposition home or self-care (01) ==
LOC: HO.LAB 11:01
PROVIDERS: PCP Physician Assistant; Visit Provider Physician Assistant
DX: J18.9 Pneumonia, unspecified organism (principal); E03.9 Hypothyroidism, unspecified; I10 Essential (primary) hypertension; I48.91 Unspecified atrial fibrillation; Z85.038 Personal history of other malignant neoplasm of large intestine
CPT/HCPCS: 36415; 71046; 80053; 84439; 84443; 85025; 99212

== ENCOUNTER 2025-05-09 11:01 | Outpatient (AMB) | payer OTHER, SELFPAY ==
--- NOTE | 2025-05-09 11:07 | MHC.PC.OV ---
Vital Signs 05/09/25 11:09 Height 5 ft 1.81 in Weight 189 lb 4 oz BMI 34.8 BP 108/70 Blood Pressure Location Lt brachial Position Sitting Respiration 14 Pulse 66 Pulse Source Pulse Oximeter Temp 98.2 F Temp Source Oral Pulse Oximetry (%) 99 Oxygen Delivery Method Room Air Intake Visit Reasons: Alvarez, D/C on 03/29 Re: Pneumonia Intake Note: Emergency room follow up Site Physician Required: No Allergies codeine Allergy (Intermediate, Verified 05/09/25 11:08) Swelling Tobacco use date assessed: 05/09/25 Fall risk assessment: 1 Fall in past year Last assessed Fall Risk: 05/09/25 Dental Screening Dental Screen Date: 03/21/25 HPI Alvarez, D/C on 03/29 Re: Pneumonia HPI Details Pt is an 85 y/o female who presents today for a hospital follow up. She has hx of htn, hld, afib, prior cva (approximately 2014), s/p partial colectomy due to colon cancer She presented to [place] ER on 03/27 with complaints of feeling lousy and a cough. She was diagnosed with a right lower lung pneumonia and parainfluenza and family opted for hospitalization. She did have a leukocytosis while admitted but it did trend down. She was initially started on ceftriaxone and doxycycline and then change to Augmentin. She was provided Augmentin for 5 days and completed the course. She is overall feeling better but still does have an intermittent cough. She states that it has gradually lessening. No sinus pain or pressure. She is gaining back her energy. GI: nov 2024 had colon ca and s/p partial resection. Followed with Dr. Marcos. She was supposed to schedule a follow up with Dr. Marcos and states that she needs to look at her calendar at home to see if she has booked with anything. heme/onc: colon ca dx nov 2024- no further treatment. No records today but we will get me records. CV: She is following with [facility] hx of afib on ac, bp today is 108/70. She is on Eliquis 5 mg twice a day, furosemide, and metoprolol. She had a consult with Cardiology a few weeks ago it does not believe there were any medication to just. She does not remember much about her appointments. She does not notice any palpitations or shortness on breath. She is on metoprolol 50 mg daily, furosemide 20 mg daily , Eliquis 5 mg twice a day and is on simvastatin 20 mg Endo: Unaware of the diagnosis of hypothyroidism but on levothyroxine 137 mcg Mammo: Does not want [facility] Surgical History (Updated 02/21/25 @ 13:57 by Lucie Moon CMA) H/O gastric sleeve Family History (Updated 02/21/25 @ 13:56 by Lucie Moon CMA) Other Family history unknown Social History (Updated 02/21/25 @ 14:03 by Lucie Moon CMA) Housing: House Alcohol intake: current Patient Tobacco Use Status: Never used Tobacco e-Cigarette/Vaping Use: Never Used Second Hand Smoke Exposure: No service: No Current occupational status: retired Cognitive needs: No Hearing needs: No Vision needs: No Questionnaire Thrive Questionnaire Date Thrive assessed: 02/21/25 I am a: Patient What is your living situation today?: I have a steady place to live Within the past 12 months, did the food you bought not last and you didn't have the money to get more?: Never true Within the past 12 months, did you worry whether your food would run out before you got money to buy more?: Never true Do you have trouble paying for medicines?: Yes Do you have trouble getting transportation to medical appointments?: No Do you have trouble paying your heating and electricity bill?: No Do you have trouble taking care of your child, family member or friend?: No Do you have trouble with day-to-day activities such as bathing, preparing meals, shopping, managing finances, etc.?: No Are you currently unemployed and looking for a job?: No Are you interested in more education?: No Please select the resources that you would like help with: Paying for medicine Currently or been in a relationship where the following occur: No concerns reported THRIVE Score: 0 MARCELINA-7 AMB Questionnaire MARCELINA-7 Date MARCELINA - 7 assessed: 02/21/25 Source: Developed by Drs. Doyle Christianson, Poonam Orozco, Alfonzo Piña and colleagues, with an educational leah from [employer]. Physical exam (Primary Care) Vital Signs: Last Vital Signs Temp 98.2 F 05/09/25 11:09 Pulse 66 05/09/25 11:09 Resp 14 05/09/25 11:09 BP 108/70 05/09/25 11:09 Pulse Ox 99 05/09/25 11:09 Oxygen Delivery Method Room Air 05/09/25 11:09 BMI result Body Mass Index 34.8 Tobacco/Smoking Status: Tobacco use Status Tobacco use date assessed 05/09/25 05/09/25 11:13 Patient Tobacco Use Status Never used Tobacco 05/09/25 11:07 e-Cigarette/Vaping Use Never Used 05/09/25 11:07 Thrive Assessment: Date of Thrive Assessment Date Thrive assessed 02/21/25 05/09/25 11:07 Currently or been in a relationship where the following occur: No concerns reported Const Orientation/consciousness: patient oriented x3 HENMT Ears: hearing grossly normal bilaterally Neck Thyroid: Thyroid normal Lymphatic: no lymphadenopathy noted Resp Auscultation: clear to auscultation bilaterally Cardio Rate: regular rate Rhythm: regular rhythm Heart sounds: S1 normal heart sound present and S2 normal heart sound present GI Inspection: Yes normal to inspection Palpation (GI): Soft to palpation and Other GI palpation findings present (nontender, no cva tenderness) Auscultation: normoactive bowel sounds Rectal Exam - Female: deferred Skin General skin exam: no rashes or lesions noted Neuro General: patient oriented x3, gait normal and no focal motor deficits Coding Level of Care Code Est Pt Level 4 (92983) Complex EM visit Add On G2211 Diagnoses Pneumonia involving right lung J18.9 Hypothyroid E03.9 HTN (hypertension) I10 Assessment & Plan Assessment & Plan (1) Pneumonia involving right lung: Code(s): J18.9 - Pneumonia, unspecified organism Plan: improved feeling will repeat chest xray labs ordered (2) Hypothyroid: Code(s): E03.9 - Hypothyroidism, unspecified Category: Medical Plan: will recheck tsh (3) HTN (hypertension): Code(s): I10 - Essential (primary) hypertension Category: Medical Plan: wnl continue current plan. Orders: Orders XR chest 2V Today E03.9 - Hypothyroidism, unspecified, I48.91 - Unspecified atrial fibrillation, J18.9 - Pneumonia, unspecified organism Comprehensive Met. Panel Today E03.9 - Hypothyroidism, unspecified, I10 - Essential (primary) hypertension, I48.91 - Unspecified atrial fibrillation Complete Blood Count Auto Diff Today E03.9 - Hypothyroidism, unspecified, I10 - Essential (primary) hypertension, I48.91 - Unspecified atrial fibrillation TSH reflex Free T4 Today E03.9 - Hypothyroidism, unspecified, I10 - Essential (primary) hypertension, I48.91 - Unspecified atrial fibrillation Patient Instructions: repeat chest xray and blood work at [address]
[2025-05-09 11:09] VITALS: BP 108/70; PULSE 66; RESP 14; TEMP 36.8; O2SAT 99; BMI 34.8
--- OUTSIDE RECORDS SUMMARY | 2025-05-09 12:04 | XMS_ITS | Encounter Summary ---
Author Organization [facility] Address [address] [address] Phone Care Team Providers Care Graphic Design Manager Name Role Phone Pcp, Unknown Primary Care Provider Unavailabl e Encounter Details Date Type Department Care Team (Late st Contact Info) Description 08/21/2022 Procedure Pass OR Admitting Dept - Virtual Department [address] [place] [id number] Social History Tobacco Use Types Packs/Day Years Used Date Smoking Tobacco: Never Smokeless Tobacco: Never Alcohol Use Standard Drinks/Week Comments Yes 1 (1 standard drink = 0.6 oz pur e alcohol) Comments Unknown Sex and Gender Information Value Date Recorded Sex Assigned at Not on file Legal Sex Female 4:51 PM EDT Gender Identity Not on file Sexual Orientation Not on file documented as of this encounter Plan of Treatment Not on file documented as of this encounter Visit Diagnoses Not on filedocumented in this encounter Care Teams Graphic Design Manager Relationship Specialty Start Date End Date Pcp, Unknown PCP - General 07/10/22 documented as of this encounter Additional Source Comments The information contained in this document represents components of the legal health record. It is not the complete legal health record.[facility]
--- OUTSIDE RECORDS SUMMARY | 2025-05-09 12:04 | XMS_ITS | Clinical Summary ---
Author Organization [facility] [address] [place] [address] [place] [phone] Phone Care Team Providers Care Food Service Steward Name Role Phone Unavailable Primary Care Provider [...] square meter and albuminuria creatinine ratio les* ([facility] V24, [facility] V28) 06/21/2018 Vitamin D deficiency 03/29/2018 Paroxysmal atrial fibrillation ([facility] V24, [facility] V28) 10/14/2016 Overview (09/28/2024): Last Assessment & [...] mg orally twice a day given her [id number]-HIPl score of 6. 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, moderately decreased glomerular filtration rate (GFR) between 45-59 mL/min/1.73 square meter and albuminuria creatinine ratio less than 30 mg/g ([facility]) DJD (degenerative joint dise ase) of knee 09/10/2015 DX:DJD (degenerative joint d isease) of knee History of CVA (cerebrovascu lar accident) 11/09/2017 DX:History of CVA (cerebrova scular accident) Paroxysmal atrial fibrillati on ([facility] V24, [facility] V28) 10/14/2016 DX:Paroxysmal atrial fibril lation ([facility]) Varicose veins 08/27/2009 DX:Varicose vein s Vitamin [...] 08/15/2024 1:35 PM EDT Plan of Treatment Upcoming Encounters Date Type Department Care Team (Late st Contact Info) Description 07/30/2025 7:40 AM EDT Office Visit [facility] [address] [place] [phone] [place] [address] [place] [address] Health Maintenance Due Date Last Done Comments Zoster Vaccines (1 of 2) 1961 RSV Immunization Adult Patients (1 - 1-dose 75+ series) 2017 Falls Risk Assessment 09/26/2022 Medicare Annual Wellness Visit 09/26/2022 Social Influencers of Health Screening 09/26/2022 COVID-19 Vaccine ( season) 2024 10/22/2022, 01/22/2022, 08/15/2021, Additional history exists Depression Screening 10/18/2024 Hypertension/CHF/CAD Annual BMP Blood Test 06/09/2025 06/09/2024, 06/09/2024 Influenza Vaccine (#1) 2025 , 08/04/2022, 07/30/2021, Additional history exists Cholesterol Screening [...] scores not able to be calculated. The [facility] Department of Internal Medicine recommends using [...] alternative screening schedule based on fabiano Glass., [facility] November 05, 2011 for patients with [...] scores not able to be calculated. The [facility] Department of Internal Medicine recommendsusing National [...] FRAX. Optional alternative screening schedule based on joey Glass al., NEJMJanuary 2011 for patients with osteopenia (based on hip BMD T-score) is as follows: * advanced osteopenia (T scores -2.00 to -2.49), BMD testing every year * moderate osteopenia (T scores -1.50 to -1.99), BMD testing every 5years mild osteopenia or normal BMD (T scores -1.50 and higher), BMD testingevery 15 years Luly Castro MD IMG DXA PROCEDURES Carmen l Result from Last 3 Months or Most Recently Relevant to Health Maintenance Insurance [employer] MEDICARE ADVANTAGE
== END 2025-05-09 11:33 | disposition home or self-care (01) ==
LOC: HO.HMCFM 11:02
PROVIDERS: PCP Physician Assistant; Visit Provider Physician Assistant
DX: J18.9 Pneumonia, unspecified organism (principal); E03.9 Hypothyroidism, unspecified; I10 Essential (primary) hypertension

== ENCOUNTER → 2025-05-09 12:41 | Outpatient (BNV) | payer MEDICARE, SELFPAY | PROVIDERS: PCP Physician Assistant; Visit Provider Radiology Diagnostic Radiology | DX: J18.9 Pneumonia, unspecified organism (principal) | CPT/HCPCS: 71046 ==

== ENCOUNTER 2025-06-08 11:34 | Outpatient (AMB) | payer OTHER, SELFPAY ==
--- OUTSIDE RECORDS SUMMARY | 2025-06-08 11:36 | XMS_ITS | Clinical Summary ---
Author Organization [facility] [address] [place] [address] [place] [phone] Phone Care Team Providers Care Resistance Machine Welder Setter Name Role Phone Unavailable Primary Care Provider [...] square meter and albuminuria creatinine ratio les* ([facility] V24, [facility] V28) 06/21/2018 Vitamin D deficiency 03/29/2018 Paroxysmal atrial fibrillation ([facility] V24, [facility] V28) 10/14/2016 Overview (09/28/2024): Last Assessment & [...] mg orally twice a day given her [id number]-RUTr score of 6. 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, moderately decreased glomerular filtration rate (GFR) between 45-59 mL/min/1.73 square meter and albuminuria creatinine ratio less than 30 mg/g ([facility]) DJD (degenerative joint dise ase) of knee 09/10/2015 DX:DJD (degenerative joint d isease) of knee History of CVA (cerebrovascu lar accident) 11/09/2017 DX:History of CVA (cerebrova scular accident) Paroxysmal atrial fibrillati on ([facility] V24, [facility] V28) 10/14/2016 DX:Paroxysmal atrial fibril lation ([facility]) Varicose veins 08/27/2009 DX:Varicose vein s Vitamin [...] Description 07/30/2025 7:40 AM EDT Office Visit [facility] - [address] [place] [phone] [place] [address] [place] [address] Health Maintenance Due Date Last Done Comments [...] scores not able to be calculated. The [facility] Department of Internal Medicine recommends using [...] alternative screening schedule based on fabiano Glass., [facility] November 05, 2011 for patients with osteopenia [...] scores not able to be calculated. The [facility] Department of Internal Medicine recommendsusing National [...]
--- OUTSIDE RECORDS SUMMARY | 2025-06-08 11:36 | XMS_ITS | Encounter Summary ---
Author Organization [facility] Address [address] [address] Phone Care Team Providers Care Video Game Tester Name Role Phone Pcp, Unknown Primary Care Provider Unavailabl e Encounter Details Date Type Department Care Team (Late st Contact Info) Description 08/21/2022 Procedure Pass OR Admitting Dept - Virtual Department [address] [place] [phone] Social History Tobacco Use Types Packs/Day Years [...] on filedocumented in this encounter Care Teams Video Game Tester Relationship Specialty Start Date End Date Pcp, Unknown PCP - General 07/10/22 documented as of this encounter Additional Source Comments The information contained in this document represents components of the legal health record. It is not the complete legal health record.[facility]
[2025-06-08 12:09] VITALS: BP 128/64; PULSE 66; TEMP 36.6; O2SAT 98; BMI 34.8
--- NOTE | 2025-06-08 12:09 | MHC.OFFWIV ---
Intake Vital Signs 06/08/25 12:09 Height 5 ft 1.75 in Weight 189 lb BMI 34.8 BP 128/64 Blood Pressure Location Rt brachial Position Sitting Pulse 66 Pulse Source Pulse Oximeter Temp 97.9 F Temp Source Oral Pulse Oximetry (%) 98 Oxygen Delivery Method Room Air Intake Visit Reasons: EP Bilat knee pain/swelling Intake Note: pt presents with bilateral knee pain & swelling Patient Tobacco Use Status: Never used Tobacco Allergies codeine Allergy (Intermediate, Verified 06/08/25 12:10) Swelling Do you need a note to return to daycare/school/sports/work: No HPI HPI Comments History of Present Illness Details History of Present Illness - The patient is an 85-year-old female presenting with bilateral knee swelling. - The knee swelling began in November and has progressively worsened over time. - The patient reports taking a diuretic but continues to experience frequent urination, suggesting persistent edema. - There is no associated pain upon palpation of the knees, but the swelling is persistent. - The patient has no numbness, tingling, calf pain, ankle pain, or foot pain. - No chest pain or shortness of breath reported. - The patient was hospitalized in November, but further details of the hospitalization were not discussed. Physical Exam General: Cooperative, healthy appearing, comfortable, no acute distress and well developed Respiratory: Normal respiratory effort and able to speak in complete sentences. Clear to auscultation bilaterally Cardiovascular: Regular rate and rhythm. Normal S1 and S2 Skin: No rashes or lesions noted. Musculoskeletal: +swelling of the knees medially. No deformity noted of the knee. FROM of the knee. No click noted. No TTP of the patella, medial or lateral condyle, medial or lateral meniscus, or posterior fossa. Negative anterior drawer test. Negative Edwin noted. DTR are 1+ on the LE. Negative Homans noted. FROM of the ankle. Ambulates with a steady gait with a cane. Strength is 5/5 on the LE bilaterally. Neuro: Sensation is intact on the LE bilaterally. PFSH Surgical History (Updated 02/21/25 @ 13:57 by Lucie Moon CMA) H/O gastric sleeve Family History (Updated 02/21/25 @ 13:56 by Lucie Moon CMA) Other Family history unknown Social History (Updated 02/21/25 @ 14:03 by Lucie Moon CMA) Housing: House Alcohol intake: current Patient Tobacco Use Status: Never used Tobacco e-Cigarette/Vaping Use: Never Used Second Hand Smoke Exposure: No service: No Current occupational status: retired Cognitive needs: No Hearing needs: No Vision needs: No Review of Systems Const All systems reviewed & are unremarkable except as noted in HPI and below Physical Exam Vital Signs: Last Vital Signs Temp 97.9 F 06/08/25 12:09 Pulse 66 06/08/25 12:09 BP 128/64 06/08/25 12:09 Pulse Ox 98 06/08/25 12:09 Oxygen Delivery Method Room Air 06/08/25 12:09 BMI result Body Mass Index 34.8 Results Reviewed Results Reviewed: reviewed the x-rays in the office Assessment & Plan Assessment & Plan (1) Bilateral knee swelling: Code(s): M25.461 - Effusion, right knee; M25.462 - Effusion, left knee Plan Most likely effusion vs arthritis vs tendonitis x-rays ordered in the office Plan - rest, elevate legs - tylenol as needed for pain - will call with x-ray results - will refer her to ortho - ambulate with cane - follow up with PCP Orders: Orders XR knee RT 3V Today M25.461 - Effusion, right knee Referrals Orthopedics Referral M25.461 - Effusion, right knee, M25.462 - Effusion, left knee Coding Level of Care Code Est Pt Level 4 (24593) Diagnoses Bilateral knee swelling M25.461; M25.462
== END 2025-06-08 13:15 | disposition home or self-care (01) ==
PROVIDERS: PCP Physician Assistant; Visit Provider Physician Assistant Medical
DX: M25.461 Effusion, right knee (principal); M25.462 Effusion, left knee

== ENCOUNTER 2025-06-08 11:34 | Outpatient (REF) | payer OTHER, SELFPAY ==
--- NOTE | ~2025-06-08 | XR_ITS ---
EXAMINATION: 1. XR KNEE 1-2 VIEWS LEFT 2. XR KNEE 1-2 VIEWS RIGHT CLINICAL INFORMATION: Pain in right knee Left knee pain. COMPARISON: None available. TECHNIQUE: Two views of the right knee. FINDINGS: Right knee: No dislocation. Tricompartmental osteophyte formation, more pronounced in the patellofemoral compartment, followed by medial femorotibial compartment. Moderate narrowing of the medial femorotibial joint space. Small suprapatellar joint effusion. Left knee: No dislocation. Tricompartmental osteophyte formation, more pronounced in the patellofemoral compartment. Mild narrowing of the medial femorotibial joint space. Small suprapatellar joint effusion. XR/XR knee LT 2V IMPRESSION: Moderate degree of degenerative changes of bilateral knees, right greater than left. Electronically signed by: Elizabeth Amaro MD 06/08/2025 02:03 PM EDT
--- NOTE | ~2025-06-08 | XR_ITS ---
EXAMINATION: 1. XR KNEE 1-2 VIEWS LEFT 2. XR KNEE 1-2 VIEWS RIGHT CLINICAL INFORMATION: Pain in right knee Left knee pain. COMPARISON: None available. TECHNIQUE: Two views of the right knee. FINDINGS: Right knee: No dislocation. Tricompartmental osteophyte formation, more pronounced in the patellofemoral compartment, followed by medial femorotibial compartment. Moderate narrowing of the medial femorotibial joint space. Small suprapatellar joint effusion. Left knee: No dislocation. Tricompartmental osteophyte formation, more pronounced in the patellofemoral compartment. Mild narrowing of the medial femorotibial joint space. Small suprapatellar joint effusion. XR/XR knee RT 2V IMPRESSION: Moderate degree of degenerative changes of bilateral knees, right greater than left. Electronically signed by: Elizabeth Amaro MD 06/08/2025 02:03 PM EDT
== END 2025-06-08 11:35 | disposition home or self-care (01) ==
LOC: HO.HMGCX 11:34
PROVIDERS: PCP Physician Assistant; Visit Provider Physician Assistant Medical
DX: M25.461 Effusion, right knee (principal); M25.462 Effusion, left knee; M25.561 Pain in right knee; M25.562 Pain in left knee
CPT/HCPCS: 73560

== ENCOUNTER → 2025-06-08 13:28 | Outpatient (BNV) | payer OTHER, SELFPAY | PROVIDERS: PCP Physician Assistant; Visit Provider Radiology Body Imaging | DX: M17.0 Bilateral primary osteoarthritis of knee (principal) | CPT/HCPCS: 73560 ==

== ENCOUNTER 2025-06-12 13:30 | Outpatient (AMB) | payer OTHER, SELFPAY ==
--- NOTE | 2025-06-12 13:39 | AM.OFFWIN_ITS ---
Intake Vital Signs 06/12/25 13:42 Height 5 ft 1.75 in Weight 189 lb 8 oz BMI 34.9 BP 112/70 Blood Pressure Location Rt brachial Position Sitting Respiration 12 Pulse 72 Pulse Source Pulse Oximeter Temp 97.2 F Temp Source Oral Pulse Oximetry (%) 99 Oxygen Delivery Method Room Air Intake Visit Reasons: Swollen Knees Intake Note: Patient c/o swollen and px on both knees since October. 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 Friction Required: No Allergies codeine Allergy (Intermediate, Verified 06/12/25 13:39) Swelling Do you need a note to return to daycare/school/sports/work: No PFSH Surgical History (Updated 02/21/25 @ 13:57 by Lucie Moon CMA) H/O gastric sleeve Family History (Updated 02/21/25 @ 13:56 by Lucie Moon CMA) Other Family history unknown Social History (Updated 02/21/25 @ 14:03 by Lucie Moon CMA) Housing: House Alcohol intake: current Patient Tobacco Use Status: Never used Tobacco e-Cigarette/Vaping Use: Never Used Second Hand Smoke Exposure: No service: No Current occupational status: retired Cognitive needs: No Hearing needs: No Vision needs: No Coding
[2025-06-12 13:42] VITALS: BP 112/70; PULSE 72; RESP 12; TEMP 36.2; O2SAT 99; BMI 34.9
--- NOTE | 2025-06-12 14:07 | A.OFFPC_ITS ---
Vital Signs 06/12/25 13:42 Height 5 ft 1.75 in Weight 189 lb 8 oz BMI 34.9 BP 112/70 Blood Pressure Location Rt brachial Position Sitting Respiration 12 Pulse 72 Pulse Source Pulse Oximeter Temp 97.2 F Temp Source Oral Pulse Oximetry (%) 99 Oxygen Delivery Method Room Air Intake Visit Reasons: Swollen Knees Allergies codeine Allergy (Intermediate, Verified 06/12/25 14:06) Swelling Medication List - Last Reconciled 06/12/25 by Shelby Womack CARE ASST- apixaban (Eliquis) 5 mg PO BID biotin PO DAILY cholecalciferol (vitamin D3) PO DAILY ferrous sulfate ER mg PO furosemide 20 mg PO DAILY levothyroxine 137 mcg PO DAILY mecobalamin (vitamin B12) PO DAILY metoprolol succinate ER 50 mg PO DAILY simvastatin 20 mg PO BEDTIME Tobacco use date assessed: 05/09/25 Dental Screening Dental Screen Date: 03/21/25 HPI HPI Comments History of Present Illness Details 85 y/o F with htn, hld, afib, prior cva (approximately 2014), s/p partial colectomy due to colon cancer - presenting with bilateral knee swelling. - Swelling present since November - Mild posterior knee discomfort noted. - Swelling impacts clothing fit and reuben y activities. - Current treatment with Furosemide whic h she did increase from 20mg to 40mg for a few days with improvement but could not tolerate the excessive urination so stopped - Seen at walk in 06/08/25 for this, note reviewed. XRays completed. See below. [place] [facility] [place] - Denies fever, chills, chest pain, sob, loss of sensation. Physical Exam General: Cooperative, healthy appearing, comfortable, no acute distress and well developed Respiratory: Normal respiratory effort and able to speak in complete sentences. Clear to auscultation bilaterally Cardiovascular: Regular rate and rhythm. Normal S1 and S2 Skin: No rashes or lesions noted. Musculoskeletal: +swelling of the knees medially. No deformity noted of the knee. FROM of the knee. No click noted. No TTP of the patella, medial or lateral condyle, medial or lateral meniscus, or posterior fossa. Negative anterior drawer test. Negative Edwin noted. DTR are 1+ on the LE. Negative Homans noted. FROM of the ankle. Ambulates with a steady gait with a cane. Strength is 5/5 on the LE bilaterally. Trace edema bilat lower ext; + PP. Amb w/ cane. Overall large legs compared to upper body ?? lymph edema Neuro: Sensation is intact on the LE bilaterally. Results see below Discussion Notes I discussed with her the diagnosis of bilateral knee arthritis with associated swelling. We reviewed exercise modifications, advising low-impact activities such as cycling while avoiding high-impact ones. I recommended wearing compression stockings to manage swelling and suggested elevating legs when seated. A referral for orthopedic evaluation in place for further management. I explained that the current use of Furosemide & while she did benefit from an increase recently she declined to increase d/t uptick in urinationl. She was instructed to follow up with PCP in two weeks, as scheduled, to assess interven tion effectiveness. We also discussed the upcoming orthopedic appointment scheduling as a self-initiative. Patient was given time to ask questions. All questions were answered to their satisfaction. Assessment and Plan 1. Bilateral knee arthritis - Used recumbent bike at the [employer] as tole rated - Orthopedic consultation advised. 2. Bilateral knee swelling - Compression stockings suggested. - Leg elevation for fluid management rec ommended. - Cont lasix. ?? degree of lymphedema, reviewed w her. She declined referral to vascular/lymphedema clinic at this time. Patient Instructions - Call to schedule an appointment with [facility] for knee evaluation. - Use a recumbent bike for exercise; eliseo id high-impact activities like treadmill walking. - Use compression stockings to help ney ge swelling. - Elevate your legs whenever possible, e specially when seated. - Follow up with PCP in two weeks to rev iew the effectiveness of these interventions. - Reach out for any sudden breathing iss ues or worsening symptoms. Consent Patient was informed and verbally consented to the use of an ambient scribe for clinic note documentation during this visit. Total time spent caring for the patient today was 30 minutes. This includes time spent before the visit reviewing the chart, time spent during the visit, and time spent after the visit on documentation, reviewing laboratory results, diagnostic imaging, medications, performing a medically necessary evaluation, counseling on diagnoses, care coordination, ordering appropriate tests, ordering appropriate medications, review of tests performed by other providers, reporting test results with the patient, communication with other healthcare providers. [facility] Surgical History (Updated 02/21/25 @ 13:57 by Lucie Moon CMA) H/O gastric sleeve Family History (Updated 02/21/25 @ 13:56 by Lucie Moon CMA) Other Family history unknown Social History (Updated 02/21/25 @ 14:03 by Lucie Moon CMA) Housing: House Alcohol intake: current Patient Tobacco Use Status: Never used Tobacco e-Cigarette/Vaping Use: Never Used Second Hand Smoke Exposure: No service: No Current occupational status: retired Cognitive needs: No Hearing needs: No Vision needs: No Questionnaire Thrive Questionnaire Date Thrive assessed: 02/21/25 I am a: Patient What is your living situation today?: I have a steady place to live Within the past 12 months, did the food you bought not last and you didn't have the money to get more?: Never true Within the past 12 months, did you worry whether your food would run out before you got money to buy more?: Never true Do you have trouble paying for medicines?: Yes Do you have trouble getting transportation to medical appointments?: No Do you have trouble paying your heating and electricity bill?: No Do you have trouble taking care of your child, family member or friend?: No Do you have trouble with day-to-day activities such as bathing, preparing meals, shopping, managing finances, etc.?: No Are you currently unemployed and looking for a job?: No Are you interested in more education?: No Please select the resources that you would like help with: Paying for medicine Currently or been in a relationship where the following occur: No concerns r eported THRIVE Score: 0 MARCELINA-7 AMB Questionnaire MARCELINA-7 Date MARCELINA - 7 assessed: 02/21/25 Source: Developed by Drs. Doyle Christianson, Poonam Orozco, Alfonzo Piña and colleagues, with an educational leah from [id number]. Physical exam (Primary Care) Vital Signs: Last Vital Signs Temp 97.2 F 06/12/25 13:42 Pulse 72 06/12/25 13:42 Resp 12 06/12/25 13:42 BP 112/70 06/12/25 13:42 Pulse Ox 99 06/12/25 13:42 Oxygen Delivery Method Room Air 06/12/25 13:42 BMI result Body Mass Index 34.9 Tobacco/Smoking Status: Tobacco use Status Tobacco use date assessed 05/09/25 06/12/25 14:11 Patient Tobacco Use Status Never used Tobacco 06/12/25 14:11 e-Cigarette/Vaping Use Never Used 06/12/25 14:11 Thrive Assessment: Date of Thrive Assessment Date Thrive assessed 02/21/25 06/12/25 14:11 Currently or been in a relationship where the following occur: No concerns reported Results Reviewed Results Reviewed: 06/08/25 Right knee: No dislocation. Tricompartmental osteophyte formation, more pronounced in the patellofemoral compartment, followed by medial femorotibial compartment. Moderate narrowing of the medial femorotibial joint space. Small suprapatellar joint effusion. Left knee: No dislocation. Tricompartmental osteophyte formation, more pronounced in the patellofemoral compartment. Mild narrowing of the medial femorotibial joint space. Small suprapatellar joint effusion. XR/XR knee RT 2V IMPRESSION: Moderate degree of degenerative changes of bilateral knees, right greater than left. Electronically signed by: Elizabeth Amaro MD 06/08/2025 02:03 PM EDT RP Coding Level of Care Code Est Pt Level 4 (75160) Complex EM visit Add On G2211 Diagnoses Edema of both lower extremities R60.0 Bilateral knee effusions M25.461; M25.462 Primary osteoarthritis of both knees M17.0 Osteoarthritis type: primary Assessment & Plan Assessment & Plan (1) Edema of both lower extremities: Code(s): R60.0 - Localized edema Category: Medical (2) Bilateral knee effusions: Code(s): M25.461 - Effusion, right knee; M25.462 - Effusion, left knee Category: Medical (3) Osteoarthritis of knees, bilateral: Code(s): M17.0 - Bilateral primary osteoarthritis of knee Category: Medical Qualifiers: Osteoarthritis type: primary Qualified Code(s): M17.0 - Bilateral primary osteoarthritis of knee Plan .
--- OUTSIDE RECORDS SUMMARY | 2025-06-12 14:33 | XMS_ITS | Clinical Summary ---
Author Organization [facility] [address] [place] [address] [place] [id number] Phone Care Team Providers Care Tooth Cutter Spur Name Role Phone Unavailable Primary Care Provider [...] square meter and albuminuria creatinine ratio les* ([facility] V24, [facility] V28) 06/21/2018 Vitamin D deficiency 03/29/2018 Paroxysmal atrial fibrillation ([facility] V24, [facility] V28) 10/14/2016 Overview (09/28/2024): Last Assessment [...] mg orally twice a day given her [id number] score of 6. 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, moderately decreased glomerular filtration rate (GFR) between 45-59 mL/min/1.73 square meter and albuminuria creatinine ratio less than 30 mg/g ([facility]) DJD (degenerative joint dise ase) of knee 09/10/2015 DX:DJD (degenerative joint d isease) of knee History of CVA (cerebrovascu lar accident) 11/09/2017 DX:History of CVA (cerebrova scular accident) Paroxysmal atrial fibrillati on ([facility] V24, [facility] V28) 10/14/2016 DX:Paroxysmal atrial fibril lation ([facility]) Varicose veins 08/27/2009 DX:Varicose vein s [...] Description 07/30/2025 7:40 AM EDT Office Visit [facility] [address] [facility] [address] [place] [address] [place] [address] [place] [address] [place] [phone] Health Maintenance Due Date Last Done Comments [...] Results * Annual BMP Blood Test (06/09/2024) Pathologist [facility] Annual BMP Blood Test Abstracted Historical Provider MD HEALTH MAINTENANCE Final Result * Lipid panel (05/11/2023) Pathologist [facility] LDL/HDL Ratio 2 0 - 4 Triglycerides [...] scores not able to be calculated. The [facility] Department of Internal Medicine recommends using [...] screening schedule based on fabiano Glass., [facility] November 05, 2011 for patients with osteopenia [...] scores not able to be calculated. The [facility] Department of Internal Medicine recommendsusing National [...] alternative screening schedule based on fabiano Glass., NEJMJanuary 2011 for patients with osteopenia (based on hip BMD T-score) is as follows: * advanced osteopenia (T scores -2.00 to -2.49), BMD testing every year * moderate osteopenia (T scores -1.50 to -1.99), BMD testing every 5years mild osteopenia or normal BMD (T scores -1.50 and higher), BMD testingevery 15 years Luly Castro MD [facility] DXA PROCEDURES Carmen l Result from Last 3 Months or Most Recently Relevant to Health Maintenance Insurance [employer] MEDICARE ADVANTAGE
--- OUTSIDE RECORDS SUMMARY | 2025-06-12 14:33 | XMS_ITS | Encounter Summary ---
Author Organization [facility] Address [address] [place] [phone] Phone Care Team Providers Care Adult Daycare Coordinator Name Role Phone Pcp, Unknown Primary Care Provider Unavailabl e Encounter Details Date Type Department Care Team (Late st Contact Info) Description 08/21/2022 Procedure Pass OR Admitting Dept - Virtual Department [address] [place] [id number] Social History Tobacco Use Types Packs/Day Years [...] on filedocumented in this encounter Care Teams Adult Daycare Coordinator Relationship Specialty Start Date End Date Pcp, Unknown PCP - General 07/10/22 documented as of this encounter Additional Source Comments The information contained in this document represents components of the legal health record. It is not the complete legal health record.[facility]
--- OUTSIDE RECORDS SUMMARY | 2025-06-12 14:33 | XMS_ITS | Clinical Summary ---
Author Organization [facility] Address [address] [place], [place] [id number] Phone Care Team Providers Care Immigration Judge Name Role Phone Pcp, Unknown Primary Care Provider Unavailabl e Allergies Active Allergy Reactions Criticality Noted Date Comments Codeine 08/18/2022 Medications pot bicarb/potassiu m cit/ca (POTASSIUM BICARBONATE ORAL) potassium Active omega-3s/dha/ep a/fish oil/D3 (VITAMIN-D + OMEGA-3 ORAL) Vitamin D Active amiodarone (PACERONE) 200 MG tablet amiodarone 200 mg tablet 2 Active apixaban (ELIQUIS) 5 mg tablet Eliquis 5 mg tablet 2 Active furosemide (LASIX) 20 MG tablet Take 20 mg by mouth daily. 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 Not on yanni e 02/13/2023 Are you concerned about learning? Not on file 02/13/2023 No 02/13/2023 No 02/13/2023 Digital Access Answer Date Recorded No 03/14/2023 No 03/14/2023 No 03/14/2023 Reliable internet access at home? Not on file 03/14/2023 Device with a working camera? Not on file Comments Unknown Sex and Gender Information Value Date Recorded Sex Assigned at Not on file Legal Sex Female 4:51 PM EDT Gender Identity Not on file Sexual Orientation Not on file Last Filed Vital Signs Vital Sign Reading Time Taken Comments Blood Pressure 141/91 08/21/2022 9:36 AM EDT Pulse 73 08/21/2022 9:36 AM EDT Temperature - - Respiratory Rate - - Oxygen Saturation 98% 08/21/2022 9:36 AM EDT Inhaled Oxygen Concentration - - Weight 88 kg (194 lb) 08/18/2022 4:16 PM EDT Height 160 cm (5' 3 ) 08/18/2022 4:16 PM EDT Body Mass Index 34.37 08/18/2022 4:16 PM EDT Plan of Treatment Health Maintenance Due Date Last Done Comments ALT LEVEL (ALANINE AMINOTRANSFERASE) 1942 CREATININE LEVEL 1942 POTASSIUM LEVEL 1942 TSH LEVEL 1942 DEPRESSION SCREENING 1954 ZOSTER VACCINES (1 of 2) 1961 OSTEOPOROSIS SCREENING INITIAL (ONE-TIME) 2007 RSV VACCINE (1 - 1-dose 75+ series) 2017 COVID-19 VACCINE ( season) 2024 01/22/2022, 08/15/2021, 12/31/2020, Additional history exists Adult Td,Tdap Booster 09/04/2030 09/04/2020 PNEUMOCOCCAL VACCINES (50+ years) Completed 11/09/2017, 09/10/2015 HEPATITIS A VACCINES Aged Out No long er eligible based on patient's age to complete this topic HIB VACCINES Aged Out No longer eligi ble based on patient's age to complete this topic MENINGOCOCCAL VACCINES (ACWY) Aged Out No longer eligible based on patient's age to complete this topic MENINGOCOCCAL VACCINES (B) Aged Out N o longer eligible based on patient's age to complete this topic Medical Devices Not on file Insurance AETNA [facility] MEDICARE REPLACEMENT [facility] RE[facility] RE[facility]EMENT AETNA O MEDICARE REPLACEMENT AETNA O MEDICARE REPLACEMENT AETNA O MEDICARE REPLACEMENT AETNA O MEDICARE REPLACEMENT AETNA O MEDICARE REPLACEMENT AETNA O MEDICARE REPLACEMENT Care Teams Immigration Judge Relationship Specialty Start Date End Date Pcp, Unknown PCP - General 07/10/22 Additional Source Comments The information contained in this document represents components of the legal health record. It is not the complete legal health record.[facility]
== END 2025-06-12 14:19 | disposition home or self-care (01) ==
LOC: HO.HMCFM 13:31
PROVIDERS: PCP Physician Assistant; Visit Provider Nurse Practitioner Family
DX: R60.0 Localized edema (principal); M25.461 Effusion, right knee; M25.462 Effusion, left knee; M17.0 Bilateral primary osteoarthritis of knee

== ENCOUNTER 2025-07-04 12:15 | Outpatient (AMB) | payer OTHER, SELFPAY ==
--- NOTE | 2025-07-04 12:17 | MHC.PC.OV ---
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: No Is last menstrual period known: No Post menopausal: No Patient : No Allergies codeine Allergy (Intermediate, Verified 07/04/25 12:21) Swelling Medication List - Last Reconciled 07/04/25 by Frances Ledezma PA-C apixaban (Eliquis) 5 mg PO BID biotin PO DAILY cholecalciferol (vitamin D3) PO DAILY ferrous sulfate ER mg PO furosemide 20 mg PO DAILY levothyroxine 137 mcg PO DAILY mecobalamin (vitamin B12) PO DAILY metoprolol succinate ER 50 mg PO DAILY simvastatin 20 mg PO BEDTIME Tobacco use date assessed: 07/04/25 Fall risk assessment: No Falls in past year Last assessed Fall Risk: 07/04/25 Dental Screening Dental Screen Date: 07/04/25 Did you have a dental visit in the last 12 months?: No Did you have a dental problem in the last 6 months where you did not have access to dental care?: No Was dental information given to patient?: Patient has dentist HPI bp and labs HPI Details Pt is an 85 y/o female with a significant past medical hx of htn, hld, afib, prior cva (approximately 2014), s/p partial colectomy due to colon cancer who presents today for a follow up accompanied today by her daughter. HEENT: She reports getting frequent nosebleeds from the left nostril. She has had 3 nosebleeds so far. They do. The last 1 was about a week ago. She says that they do not typically lasts more than a few minutes. GI: nov 2024 had colon ca and s/p partial resection. Followed with Dr. Marcos and believes she has booked next week. Her daughter will let me know heme/onc: colon ca dx nov 2024- no further treatment. No records today but we will get me records. CV: She is following with [facility] hx of afib on ac, bp today is 152/76. She is on Eliquis 5 mg twice a day, furosemide, and metoprolol. She is following with [facility]. Cholesterol is managed with simvastatin. Endo: Last TSH was elevated and patient has not been taking levothyroxine since October. 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 Her daughter states that she really wants to be present at all visits because the patient has a hard time remembering what happens at doctor's visits. MSK: Has ongoing bilateral knee pain and swelling and would like a consult to [facility]. She has booked with [facility] but not until August. Mammo: Does not want PFSH Surgical History (Updated 02/21/25 @ 13:57 by Lucie Moon CMA) H/O gastric sleeve Family History (Updated 02/21/25 @ 13:56 by Lucie Moon CMA) Other Family history unknown Social History (Updated 02/21/25 @ 14:03 by Lucie Moon CMA) Housing: House Alcohol intake: current Patient Tobacco Use Status: Never used Tobacco e-Cigarette/Vaping Use: Never Used Second Hand Smoke Exposure: No Patient : No service: No Current occupational status: retired Current occupational exposures/hazards: No Cognitive needs: No Hearing needs: No Vision needs: No Questionnaire Thrive Questionnaire Date Thrive assessed: 02/21/25 I am a: Patient What is your living situation today?: I have a steady place to live Within the past 12 months, did the food you bought not last and you didn't have the money to get more?: Never true Within the past 12 months, did you worry whether your food would run out before you got money to buy more?: Never true Do you have trouble paying for medicines?: Yes Do you have trouble getting transportation to medical appointments?: No Do you have trouble paying your heating and electricity bill?: No Do you have trouble taking care of your child, family member or friend?: No Do you have trouble with day-to-day activities such as bathing, preparing meals, shopping, managing finances, etc.?: No Are you currently unemployed and looking for a job?: No Are you interested in more education?: No Please select the resources that you would like help with: Paying for medicine Currently or been in a relationship where the following occur: No concerns reported THRIVE Score: 0 MARCELINA-7 AMB Questionnaire MARCELINA-7 Date MARCELINA - 7 assessed: 02/21/25 Source: Developed by Drs. Doyle Christianson, Poonam Orozco, Alfonzo Piña and colleagues, with an educational leah from [employer]. Physical exam (Primary Care) Vital Signs: Last Vital Signs Temp 97.3 F 07/04/25 12:23 Pulse 63 07/04/25 12:23 Resp 16 07/04/25 12:23 BP 152/76 H 07/04/25 12:23 Pulse Ox 100 07/04/25 12:23 Oxygen Delivery Method Room Air 07/04/25 12:23 BMI result Body Mass Index 31.5 Tobacco/Smoking Status: Tobacco use Status Tobacco use date assessed 07/04/25 07/04/25 12:22 Patient Tobacco Use Status Never used Tobacco 07/04/25 12:20 e-Cigarette/Vaping Use Never Used 07/04/25 12:20 Thrive Assessment: Date of Thrive Assessment Date Thrive assessed 02/21/25 07/04/25 12:20 Currently or been in a relationship where the following occur: No concerns reported Const Orientation/consciousness: patient oriented x3 HENMT Ears: hearing grossly normal bilaterally Neck Thyroid: Thyroid normal Lymphatic: no lymphadenopathy noted Resp Auscultation: clear to auscultation bilaterally Cardio Rate: regular rate Rhythm: regular rhythm Heart sounds: S1 normal heart sound present and S2 normal heart sound present GI Inspection: Yes normal to inspection Palpation (GI): Soft to palpation and Other GI palpation findings present (nontender, no cva tenderness) Auscultation: normoactive bowel sounds Rectal Exam - Female: deferred Skin General skin exam: no rashes or lesions noted Neuro General: patient oriented x3, gait normal and no focal motor deficits Results Reviewed Results Reviewed: Laboratory Tests 03/21/25 05/09/25 13:54 12:30 WBC 5.1 RBC 4.38 Hgb 12.1 Hct 38.2 Plt Count 167 Creatinine 0.76 Estimated GFR > 60 Random Glucose 102 Calcium 9.1 Total Bilirubin 1.1 H AST 30 ALT 19 Alkaline Phosphatase 82 Total Protein 7.9 Albumin 4.1 Triglycerides 55 Cholesterol 143 LDL Cholesterol, Calc 60 HDL Cholesterol 72 TSH 8.11 H 9.69 H Coding Level of Care Code Est Pt Level 4 (45014) Complex EM visit Add On G2211 Diagnoses HTN (hypertension) I10 Dyslipidemia E78.5 Hypothyroid E03.9 Primary osteoarthritis of both knees M17.0 Osteoarthritis type: primary Recurrent epistaxis R04.0 Memory impairment R41.3 Assessment & Plan Assessment & Plan (1) HTN (hypertension): Code(s): I10 - Essential (primary) hypertension Category: Medical Plan: Continue current regimen (2) Dyslipidemia: Code(s): E78.5 - Hyperlipidemia, unspecified Category: Medical Plan: Continue simvastatin (3) Hypothyroid: Code(s): E03.9 - Hypothyroidism, unspecified Category: Medical Plan: Advised to take the levothyroxine consistently (4) Osteoarthritis of knees, bilateral: Code(s): M17.0 - Bilateral primary osteoarthritis of knee Category: Medical Qualifiers: Osteoarthritis type: primary Qualified Code(s): M17.0 - Bilateral primary osteoarthritis of knee Plan: Referral to orthopedics (5) Recurrent epistaxis: Code(s): R04.0 - Epistaxis Category: Medical Plan: Referral to ENT (6) Memory impairment: Code(s): R41.3 - Other amnesia Category: Medical Plan: Health care proxy forms provided today MOLST form provided as well and they will go home and discuss this. We will refer to Neurology Plan Labs ordered. We have a short term follow up arranged. Orders: Orders Complete Blood Count Auto Diff Today E03.9 - Hypothyroidism, unspecified, E78.5 - Hyperlipidemia, unspecified, I10 - Essential (primary) hypertension, I48.91 - Unspecified atrial fibrillation, M17.0 - Bilateral primary osteoarthritis of knee, R04.0 - Epistaxis Basic Metabolic Panel Today E03.9 - Hypothyroidism, unspecified, E78.5 - Hyperlipidemia, unspecified, I10 - Essential (primary) hypertension, I48.91 - Unspecified atrial fibrillation, M17.0 - Bilateral primary osteoarthritis of knee, R04.0 - Epistaxis Liver Panel Today E03.9 - Hypothyroidism, unspecified, E78.5 - Hyperlipidemia, unspecified, I10 - Essential (primary) hypertension, I48.91 - Unspecified atrial fibrillation, M17.0 - Bilateral primary osteoarthritis of knee, R04.0 - Epistaxis TSH reflex Free T4 Today E03.9 - Hypothyroidism, unspecified, E78.5 - Hyperlipidemia, unspecified, I10 - Essential (primary) hypertension, I48.91 - Unspecified atrial fibrillation, M17.0 - Bilateral primary osteoarthritis of knee, R04.0 - Epistaxis UA CC w/rflx Micro + Cult Today E03.9 - Hypothyroidism, unspecified, E78.5 - Hyperlipidemia, unspecified, I10 - Essential (primary) hypertension, I48.91 - Unspecified atrial fibrillation, M17.0 - Bilateral primary osteoarthritis of knee, R04.0 - Epistaxis, R30.0 - Dysuria Hemoglobin A1c Today E03.9 - Hypothyroidism, unspecified, E78.5 - Hyperlipidemia, unspecified, I10 - Essential (primary) hypertension, I48.91 - Unspecified atrial fibrillation, M17.0 - Bilateral primary osteoarthritis of knee, R04.0 - Epistaxis, R73.01 - Impaired fasting glucose Referrals Neurology Referral R41.3 - Other amnesia Ear/Nose/Throat Referral R04.0 - Epistaxis Orthopedics Referral M17.0 - Bilateral primary osteoarthritis of knee, M25.461 - Effusion, right knee, M25.462 - Effusion, left knee
[2025-07-04 12:23] VITALS: BP 152/76; PULSE 63; RESP 16; TEMP 36.3; O2SAT 100; BMI 31.5
--- OUTSIDE RECORDS SUMMARY | 2025-07-04 15:43 | XMS_ITS | Clinical Summary ---
Author Organization [facility] Address [address] [place], [place] [id number] Phone Care Team Providers Care Sustainable Landscape Architect Name Role Phone Pcp, Unknown Primary Care [...] VACCINE (1 - 1-dose 75+ series) 2017 INFLUENZA VACCINE (#1) 2025 2, 08/04/2022, 07/30/2021, Additional history exists COVID-19 VACCINE ( season) 2025 01/22/2022, 08/15/2021, 12/31/2020, Additional history exists Adult [...] Medical Devices Not on file Insurance [employer] O MEDICARE REPLACEMENT [employer] O MEDICARE REPLACEMENT AET[employer] O MEDICARE REPLACEMENT [facility] MEDICARE REPLACEMENT [employer] PPO MEDICARE REPLACEMENT [employer] O MEDICARE REPLACEMENT [employer] PPO MEDICARE REPLACEMENT Care Teams Sustainable Landscape Architect Relationship Specialty Start Date End Date Pcp, Unknown PCP - General 07/10/22 Additional Source Comments The information contained in this document represents components of the legal health record. It is not the complete legal health record.[facility]
--- OUTSIDE RECORDS SUMMARY | 2025-07-04 15:43 | XMS_ITS | Encounter Summary ---
Author Organization [facility] Address [address] [address] Phone Care Team Providers Care Billet Heater Name Role Phone Pcp, Unknown Primary Care Provider Unavailabl e Encounter Details Date Type Department Care Team (Late st Contact Info) Description 08/21/2022 Procedure Pass OR Admitting Dept - Virtual Department [address] [place] [id number] Social History Tobacco Use Types Packs/Day Years [...] on filedocumented in this encounter Care Teams Billet Heater Relationship Specialty Start Date End Date Pcp, Unknown PCP - General 07/10/22 documented as of this encounter Additional Source Comments The information contained in this document represents components of the legal health record. It is not the complete legal health record.[facility]
== END 2025-07-04 13:21 | disposition home or self-care (01) ==
LOC: HO.HMCFM 12:15
PROVIDERS: PCP Physician Assistant; Visit Provider Physician Assistant
DX: I10 Essential (primary) hypertension (principal); E78.5 Hyperlipidemia, unspecified; E03.9 Hypothyroidism, unspecified; M17.0 Bilateral primary osteoarthritis of knee; R04.0 Epistaxis; R41.3 Other amnesia

== ENCOUNTER 2025-08-09 12:59 | Outpatient (AMB) | payer OTHER, SELFPAY ==
--- NOTE | 2025-08-09 13:09 | A.OFFPC_ITS ---
Vital Signs 08/09/25 13:14 08/09/25 13:33 Height 5 ft 5 in Weight 183 lb 6 oz BMI 30.5 BP 86/52 L 91/49 L Blood Pressure Location Lt brachial Rt brachial Position Sitting Sitting Respiration 14 Pulse 68 Pulse Source Pulse Oximeter Pulse Oximetry (%) 95 Oxygen Delivery Method Room Air Intake Visit Reasons: bp check Intake Note: Blood pressure follow up Transmitter Engineer Required: No Allergies codeine Allergy (Intermediate, Verified 08/09/25 13:13) Swelling Medication List - Last Reconciled 08/09/25 by Frances Ledezma PA-C apixaban (Eliquis) 5 mg PO BID biotin PO DAILY cholecalciferol (vitamin D3) PO DAILY ferrous sulfate ER mg PO furosemide 20 mg PO DAILY levothyroxine 137 mcg PO DAILY mecobalamin (vitamin B12) PO DAILY metoprolol succinate ER 50 mg PO DAILY simvastatin 20 mg PO BEDTIME Tobacco use date assessed: 08/09/25 Fall risk assessment: No Falls in past year Last assessed Fall Risk: 08/09/25 Dental Screening Dental Screen Date: 07/04/25 HPI bp check HPI Details Pt is an 85 y/o female with a significant past medical hx of htn, hld, afib, prior cva (approximately 2014), s/p partial colectomy due to colon cancer who presents today for a follow up accompanied today by her daughter. GI: nov 2024 had colon ca and s/p partial resection. Following with Dr. Marcos and had a CT of the abdomen and pelvis this week. She does not yet have the results. The contrast did have her have diarrhea up until today. She is scheduled for a colonoscopy on the . She will have to do a 2 day prep. She does report that with the diarrhea she is a little bit dehydrated today and has not been drinking much water. Does not feel dizzy or weak. CV: She is following with [facility] hx of afib on ac, bp today is 91/49 and repeat blood pressure is 86/52. I did manually take this and it is similar around 90/50.. She is on Eliquis 5 mg twice a day, furosemide, and metoprolol 50 mg. She is following with [facility]. Cholesterol is managed with simvastatin. Endo: Last TSH was elevated and patient has not been taking levothyroxine since October. 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 Her daughter states that she really wants to be present at all visits because the patient has a hard time remembering what happens at doctor's visits. Mammo: Does not want PFSH Surgical History (Updated 02/21/25 @ 13:57 by Lucie Moon CMA) H/O gastric sleeve Family History (Updated 02/21/25 @ 13:56 by Lucie Moon CMA) Other Family history unknown Social History (Updated 02/21/25 @ 14:03 by Lucie Moon CMA) Housing: House Alcohol intake: current Patient Tobacco Use Status: Never used Tobacco e-Cigarette/Vaping Use: Never Used Second Hand Smoke Exposure: No service: No Current occupational status: retired Current occupational exposures/hazards: No Cognitive needs: No Hearing needs: No Vision needs: No Questionnaire Thrive Questionnaire Date Thrive assessed: 02/21/25 I am a: Patient What is your living situation today?: I have a steady place to live Within the past 12 months, did the food you bought not last and you didn't have the money to get more?: Never true Within the past 12 months, did you worry whether your food would run out before you got money to buy more?: Never true Do you have trouble paying for medicines?: Yes Do you have trouble getting transportation to medical appointments?: No Do you have trouble paying your heating and electricity bill?: No Do you have trouble taking care of your child, family member or friend?: No Do you have trouble with day-to-day activities such as bathing, preparing meals, shopping, managing finances, etc.?: No Are you currently unemployed and looking for a job?: No Are you interested in more education?: No Please select the resources that you would like help with: Paying for medicine Currently or been in a relationship where the following occur: No concerns reported THRIVE Score: 0 MARCELINA-7 AMB Questionnaire MARCELINA-7 Date MARCELINA - 7 assessed: 02/21/25 Source: Developed by Drs. Doyle Christianson, Poonam Orozco, Alfonzo Piña and colleagues, with an educational leah from [email or web address]. Physical exam (Primary Care) Vital Signs: Last Vital Signs Pulse 68 08/09/25 13:14 Resp 14 08/09/25 13:14 BP 91/49 L 08/09/25 13:33 Pulse Ox 95 08/09/25 13:14 Oxygen Delivery Method Room Air 08/09/25 13:14 BMI result Body Mass Index 30.5 Tobacco/Smoking Status: Tobacco use Status Tobacco use date assessed 08/09/25 08/09/25 13:22 Patient Tobacco Use Status Never used Tobacco 08/09/25 13:10 e-Cigarette/Vaping Use Never Used 08/09/25 13:10 Thrive Assessment: Date of Thrive Assessment Date Thrive assessed 02/21/25 08/09/25 13:10 Currently or been in a relationship where the following occur: No concerns reported Const Orientation/consciousness: patient oriented x3 HENMT Ears: hearing grossly normal bilaterally Neck Thyroid: Thyroid normal Lymphatic: no lymphadenopathy noted Resp Auscultation: clear to auscultation bilaterally Cardio Rate: regular rate Rhythm: regular rhythm Heart sounds: S1 normal heart sound present and S2 normal heart sound present GI Inspection: Yes normal to inspection Palpation (GI): Soft to palpation and Other GI palpation findings present (nontender, no cva tenderness) Auscultation: normoactive bowel sounds Rectal Exam - Female: deferred Skin General skin exam: no rashes or lesions noted Neuro General: patient oriented x3, gait normal and no focal motor deficits Office Procedures EKG Details: EKG today in the office is sinus rhythm at a rate of 64 beats per minute with PACs noted. No prior study to compare. EKG interpreted myself and Dr. Young. [id number], Complete Coding Level of Care Code Est Pt Level 4 (45530) Complex EM visit Add On G2211 Diagnoses Dyslipidemia E78.5 Hypothyroid E03.9 Hypotension I95.9 CPT Codes EKG - CPT: 82212-[id number], Complete ([id number]) Assessment & Plan Assessment & Plan (1) Dyslipidemia: Code(s): E78.5 - Hyperlipidemia, unspecified Category: Medical Plan: Continue simvastatin (2) Hypothyroid: Code(s): E03.9 - Hypothyroidism, unspecified Category: Medical Plan: Advised to take the levothyroxine consistently Advised to recheck this lab today (3) Hypotension: Code(s): I95.9 - Hypotension, unspecified Category: Medical Plan: Asymptomatic. I did discuss with her that I wonder if it is related to the dehydration from the diarrhea. Given that next week she will also be doing the colon prep I have advised her to try to increase her water intake but I have also reduced her metoprolol to 25 mg. She has a cuff at home and is going to monitor her blood pressures and contact me. We will do a short term follow up in a couple weeks. Plan Labs ordered. We have a short term follow up arranged. Orders: Orders AMB EKG-In Office Today I48.91 - Unspecified atrial fibrillation, I95.9 - Hypotension, unspecified Medications: New metoprolol succinate ER 25 mg PO DAILY 90 tabs 0RF Discontinued metoprolol succinate ER Discontinued Reason: Doctor's Order 50 mg PO DAILY 90 tabs 2RF Patient Instructions: increase hydration reduce blood pressure medication (metoprolol) to 25 mg ..you take 50 mg right n ow monitor your pressures with the lower dose of the medication and call with readings return 2-3 weeks for bp recheck get labs
[2025-08-09 13:14] VITALS: BP 86/52; PULSE 68; RESP 14; O2SAT 95; BMI 30.5
[2025-08-09 13:33] VITALS: BP 91/49
--- OUTSIDE RECORDS SUMMARY | 2025-08-09 16:10 | XMS_ITS | Clinical Summary ---
Author Organization [facility] [address] [place] [address] [place] [id number] Phone Care Team Providers Care Hedis Review Nurse Name Role Phone Frances Ledezma Primary Care Provider [phone] Allergies Active Allergy Reactions Criticality Noted Date [...] 1 (one) time each day. 2 Active glucosamine/antonia celeste griffin A/C/Mn (GLUCOSAMINE-CHO NDROITIN COMPLX ORAL) Take 1 capsule by mouth 1 (one) time each day. 6 Active multivitamin (Daily Multi-Vitamin) tablet Take 1 tablet by mouth 1 (one) time each day. 2 Active furosemide (LASIX) 20 mg tabletIndication s:Paroxysmal atrial fibrillation (CMS/HCC V24, CMS/HCC V28),Essential (primary) hypertension TAKE 1 TABLET BY MOUTH TWICE A DAY 180 tablet 3 4 Active Additional Information Patient taking differently:20 mg oralDaily, Reported on 07/30/2025 metoprolol succinate (TOPROL-XL) 50 mg 24 hr [...] MOUTH EVERY DAY 90 tablet 5 Active Additional Information Patient not taking.Reported on 07/30/2025 simvastatin (ZOCOR) 20 mg tablet Take 1 [...] square meter and albuminuria creatinine ratio les* ([facility] V24, [facility] V28) 06/21/2018 Vitamin D deficiency 03/29/2018 Paroxysmal atrial fibrillation ([facility] V24, [facility] V28) 10/14/2016 Overview (09/28/2024): Last Assessment [...] mg orally twice a day given her [id number] score of 6. As such, at this point, we will continue her current medication regimen. DJD (degenerative joint disease) of knee 015 Varicose veins of both lower extremities 009 Encounters Date Type Department Care Team Description 08/02/2025 Results Follow-Up [facility]iology [facility] [address] [place] [address] [place] Far[place] PA 07/30/2025 7:40 AM EDT Office Visit [facility] [address] [place] [address] [place] PA Paroxysmal atrial fibrillation (CMS/HCC V24, CMS/HCC V28) (Primary Dx); Chronic kidney disease (CKD) stage G3a/A1, moderately decreased glomerular filtration rate (GFR) between 45-59 mL/min/1.73 square meter and albuminuria creatinine ratio les* (CMS/HCC V24, CMS/HCC V28); Lower leg edema; Snoring; Primary hypertension; On amiodarone therapy from Last 3 Months Immunizations Immunization Administration Dates Next Due Influenza trivalent, 0.5mL [...] square meter and albuminuria creatinine ratio les* (CMS/HCC V24, CMS/HCC V28) 06/21/2018 DX:Chronic kidne y disease (CKD) stage G3a/A1, moderately decreased glomerular filtration rate (GFR) between 45-59 mL/min/1.73 square meter and albuminuria creatinine ratio less than 30 mg/g (HCC) DJD (degenerative joint dise ase) of knee 09/10/2015 DX:DJD (degenerative joint d isease) of knee History of CVA (cerebrovascu lar accident) 11/09/2017 DX:History of CVA (cerebrova scular accident) Paroxysmal atrial fibrillati on (CMS/HCC V24, CMS/HCC V28) 10/14/2016 DX:Paroxysmal atrial fibril lation (HCC) Varicose veins 08/27/2009 DX:Varicose vein s Vitamin [...] Sign Reading Time Taken Comments Blood Pressure 124/68 07/30/2025 8:08 AM EDT Pulse 65 07/30/2025 7:50 AM EDT Temperature - - Respiratory Rate - - Oxygen Saturation 97% 07/30/2025 7:50 AM EDT Inhaled Oxygen Concentration - - Weight 86.6 kg (191 lb) 07/30/2025 7:50 AM EDT Height 167.6 cm (5' 6 ) 07/30/2025 7:50 AM EDT Body Mass Index 30.83 07/30/2025 7:50 AM EDT Plan of Treatment Upcoming Encounters Date Type Department Care Team (Late st Contact Info) Description 08/22/2025 11:00 AM EST Appointment [facility] Pulmonary [address] [place] [address] Health Maintenance Due Date Last Done Comments Zoster Vaccines (1 of 2) 1961 RSV Immunization Adult Patients (1 - 1-dose 75+ series) 2017 Falls Risk Assessment 09/26/2022 Medicare Annual Wellness Visit 09/26/2022 Social Influencers of Health Screening 09/26/2022 Depression Screening 10/18/2024 Hypertension/CHF/CAD Annual BMP Blood Test 06/09/2025 06/09/2024, 06/09/2024 COVID-19 Vaccine ( season) 2025 10/22/2022, 01/22/2022, 08/15/2021, Additional history exists Influenza Vaccine (#1) 2025 , 08/04/2022, 07/30/2021, [...] Procedure Name Priority Date/Time Associated Diagnosis Comments EXTERNAL CLINICAL LAB Routine 07/30/2025 9:20 AM EDT ECG 12-LEAD Routine 07/30/2025 8:15 AM EDT Paroxysmal atrial fibrillation (CMS/HCC V24, CMS/HCC V28) HM ANNUAL BMP BLOOD TEST Routine 06/09/2024 LIPID PANEL Routine 05/11/2023 DXA BONE DENSITY STUDY 1+ SITS AXIAL SKEL Routine 11/11/2020 11:44 AM EST Bilateral primary osteoarthritis of knee from Last 3 Months or Most Recently Relevant to Health Maintenance Results * External clinical lab (07/30/2025 9:20 AM EDT) Result [facility] Historical Provider LAB BLOOD ORDERABLES Edit ed Result - Final * ECG 12 lead (07/30/2025 8:15 AM EDT) [facility] Ventricular Rate ECG 65 BPM GEMUSE Atrial Rate 65 BPM GEMUSE P-R Interval 150 ms GEMUSE QRS Duration 72 ms GEMUSE Q-T Interval 436 ms GEMUSE QTc 453 ms GEMUSE P Wave [place] 83 degrees GEMUSE R [place] 40 degrees GEMUSE T [place] 12 degrees GEMUSE ECG Interpretation Sinus rhythm GEMUSE 07/30/2025 7:57 AM EDT Santa FABIAN ECG ORDERABLES Final Result GEMUSE * Annual BMP Blood Test (06/09/2024) [facility] Annual BMP Blood Test Abstracted Result [facility] Historical Provider HEALTH MAINTENANCE Final Result * Lipid panel (05/11/2023) [facility] LDL/HDL Ratio 2 0 - 4 Triglycerides 117 0 - 150 mg/dL Cholesterol 142 0 - 200 mg/dL HDL 84 >=40 mg/dL LDL Cholesterol 35 0 - 100 mg/dL Blood Venous blood specimen / Unknown Result [facility] Historical Provider LAB BLOOD ORDERABLES Carmen l [...] scores not able to be calculated. [facility] Department of Internal Medicine recommends [...] alternative screening schedule based on fabiano Glass., [facility] November 05, 2011 for patients [...] scores not able to be calculated. [facility] Department of Internal Medicine recommendsusing [...] alternative screening schedule based on fabiano Glass., [place] 2011 for patients with osteopenia (based on [...] to Health Maintenance Insurance [employer] MEDICARE ADVANTAGE Care Teams Hedis Review Nurse Relationship Specialty Start Date End Date Frances Ledezma PA [address] [place] [address] PCP - General Physician Caser In 07/30/25
--- OUTSIDE RECORDS SUMMARY | 2025-08-09 16:10 | XMS_ITS | Encounter Summary ---
Author Organization [facility] Address [address] [place] [address] Care Team Providers Care Bank Officer Name Role Phone Frances Ledezma Primary Care Provider [phone] Encounter Details Date Type Department Care Team (Late st Contact Info) Description 08/02/2025 Results Follow-Up [facility] - [facility] [address] [facility] [address] [place] [address] [place] PA [address] [facility] [address] [place] [address] Social History Tobacco Use Types Packs/Day Years [...] on file documented as of this encounter Progress Notes * Alley Head NP - 08/06/2025 2:39 PM EDT Noted thank you elevated TSH. Free T3 and 4 within normal limits. Forward to primary cardiology team please * Carol Durbin MA - 08/06/2025 12:12 PM EDT Please review completed labs. * Carol Durbin MA - 08/03/2025 10:20 AM EDT Tsh results are not back yet documented in this encounter Plan of Treatment Upcoming Encounters Date Type Department Care Team (Late st Contact Info) Description 08/22/2025 11:00 AM EST Appointment [facility] Pulmonary [address] [place] [address] documented as of this encounter Visit Diagnoses Not on filedocumented in this encounter Care Teams Bank Officer Relationship Specialty Start Date End Date Frances Ledezma PA [address] [place] [address] PCP - General Physician Risk Management Consultant 07/30/25 documented as of this encounter
--- OUTSIDE RECORDS SUMMARY | 2025-08-09 16:10 | XMS_ITS | Encounter Summary ---
Author Organization [facility] Address [address] [place] [phone] Phone Care Team Providers Care Traffic Safety Administrator Name Role Phone Pcp, Unknown Primary Care Provider Unavailabl e Encounter Details Date Type Department Care Team (Late st Contact Info) Description 08/21/2022 Procedure Pass OR Admitting Dept - Virtual Department [address] [place] [phone] Social History Tobacco Use Types Packs/Day Years [...] on filedocumented in this encounter Care Teams Traffic Safety Administrator Relationship Specialty Start Date End Date Pcp, Unknown PCP - General 07/10/22 documented as of this encounter Additional Source Comments The information contained in this document represents components of the legal health record. It is not the complete legal health record.[facility]
--- OUTSIDE RECORDS SUMMARY | 2025-08-09 16:11 | XMS_ITS | Clinical Summary ---
Author Organization [facility] Address [address] [place], [place] [id number] Phone Care Team Providers Care Absorption And Adsorption Engineer Name Role Phone Pcp, Unknown Primary Care [...] O MEDICARE REPLACEMENT [employer] O MEDICARE REPLACEMENT [facility] MEDICARE REPLACEMENT [facility] MEDICARE REPLACEMENT [employer] PPO MEDICARE REPLACEMENT [employer]ET[employer] O MEDICARE REPLACEMENT [employer] PPO MEDICARE REPLACEMENT Care Teams Absorption And Adsorption Engineer Relationship Specialty Start Date End Date Pcp, Unknown PCP - General 07/10/22 Additional Source Comments The information contained in this document represents components of the legal health record. It is not the complete legal health record.[facility]
== END 2025-08-09 14:09 | disposition home or self-care (01) ==
LOC: HO.HMCFM 13:00
PROVIDERS: PCP Physician Assistant; Visit Provider Physician Assistant
DX: E78.5 Hyperlipidemia, unspecified (principal); E03.9 Hypothyroidism, unspecified; I95.9 Hypotension, unspecified

== ENCOUNTER → 2025-08-09 12:59 | Outpatient (BNVA) | payer OTHER, SELFPAY | PROVIDERS: PCP Physician Assistant; Visit Provider Physician Assistant | DX: I69.311 Memory deficit following cerebral infarction (principal); E03.9 Hypothyroidism, unspecified; E78.5 Hyperlipidemia, unspecified; I95.9 Hypotension, unspecified; I48.91 Unspecified atrial fibrillation | CPT/HCPCS: 93005 ==

== ENCOUNTER 2025-08-30 08:18 | Outpatient (AMB) | payer OTHER, SELFPAY ==
--- OUTSIDE RECORDS SUMMARY | 2025-08-29 23:59 | XMS_ITS | Continuity of Care Document ---
Author Organization [facility] Address [address] [place] [address]- Care Team Providers Care Cdl Company Driver Name Role Phone Frances García Primary Care Physician Encounter [facility] Date(s): 07/30/25 - 08/29/25 [facility] [address] [place], [place] [address] Attending Physician: Alvaro Hinton Admitting Physician: AdmtrAlvaro Referring Physician: Admtr, ArFaye Encounter Type: Triage Allergies, Adverse Reactions, Alerts Substance Criticality Severity Reaction Reaction Severity Status codeine Unable to assess criticality Persistent Severe severe headaches Active Immunizations Given and Recorded Vaccine Date Status Refusal Reason influenza virus vaccine, inactivated 07/05/23 Deshawn rded influenza virus vaccine, inactivated 08/04/22 Deshawn rded influenza virus vaccine, inactivated 07/30/21 Deshawn rded influenza virus vaccine, inactivated 07/15/19 Deshawn rded influenza virus vaccine, inactivated 07/14/18 Deshawn rded influenza virus vaccine, inactivated 06/18/17 Deshawn rded influenza virus vaccine, inactivated 06/17/16 Deshawn rded [id number] bivalent booster vax 10/22/22 Recorded SARS-CoV-2 (COVID-19) mRNA-1273 vaccine 01/22/22 R ecorded SARS-CoV-2 (COVID-19) mRNA-1273 vaccine 08/15/21 R ecorded SARS-CoV-2 (COVID-19) mRNA-1273 vaccine 12/31/20 R ecorded SARS-CoV-2 (COVID-19) mRNA-1273 vaccine 12/03/20 R ecorded tetanus-diphtheria toxoids (Td) 09/04/20 Recorded pneumococcal 13-valent vaccine 07/25/20 Given Medications amiodarone 100 mg oral tablet 1 tablet = 100 mg, By Mouth, Daily, 0 Refills, Maintenance, 10/18/24 1:27:00 PM EST, Partial fill upon patient request if the prescription is for a schedule II opioid drug. Start Date: 10/18/24 Status: Ordered Medication Dispense Status: Completed Total Allowed Fills: 1 Fills Dispensed: 0 apixaban = 5 mg, By Mouth, 2 times a day, 0 Refills, Maintenance, 10/24/24 3:04:00 PM EST, Tablet, Partial fill upon patient request if the prescription is for a schedule II opioid drug. Start Date: 10/24/24 Status: Ordered Medication Dispense Status: Completed Total Allowed Fills: 1 Fills Dispensed: 0 calcium (as carbonate)-vitamin D 600 mg-800 intl units oral tablet 1 tablet, By Mouth, Daily, # 60 tablet, 0 Refills, Maintenance, 10/19/24 8:28:00 AM EST, Tablet, Partial fill upon patient request if the prescription is for a schedule II opioid drug. Start Date: 10/19/24 Status: Ordered Medication Dispense Status: Completed Quantity: 60.0 Unit: tablet Total Allowed Fills: 1 Fills Dispensed: 0 ferrous sulfate 325 mg oral enteric coated tablet 325 mg, 1, tablet, By Mouth, Daily, Please take with laxatives to prevent constipation, # 90 tablet, Refills 0, Tot. Refills 0, Maintenance, 10/24/24 3:10:00 PM EST, Route to Pharmacy Electronically, [facility]/pharmacy #[id number], Partial fill upon patient request if the prescription is for a schedule II opioiddrug., 165, cm, 10/24/24 6:04:00 EST, Height, 87, kg, 10/19/24 23:19:00 EST, Dry Weight Start Date: 10/24/24 Stop Date: 01/22/25 Status: Ordered Medication Dispense Status: Completed Quantity: 90.0 Unit: tablet Total Allowed Fills: 1 Fills Dispensed: 0 furosemide 20 mg oral tablet 20 mg, 1, tablet, By Mouth, 2 times a day, Refills 0, Maintenance, 07/24/20 9:09:00 AM EDT Start Date: 07/24/20 Status: Ordered Medication Dispense Status: Completed Total Allowed Fills: 1 Fills Dispensed: 0 Glucosamine Chondroitin oral capsule 1 capsule, By Mouth, Daily, # 50 capsule, 0 Refills, Maintenance, 10/19/24 8:35:00 AM EST, Capsule, Partial fill upon patient request if the prescription is for a schedule II opioid drug. Start Date: 10/19/24 Status: Ordered Medication Dispense Status: Completed Quantity: 50.0 Unit: capsule Total Allowed Fills: 1 Fills Dispensed: 0 levothyroxine 125 mcg (0.125 mg) oral capsule 1 capsule = 125 mcg, By Mouth, Daily, # 30 capsule, 0 Refills, Maintenance, 10/18/24 1:29:00 PM EST, Capsule, Partial fill upon patient request if the prescription is for a schedule II opioid drug. Start Date: 10/18/24 Status: Ordered Medication Dispense Status: Completed Quantity: 30.0 Unit: capsule Total Allowed Fills: 1 Fills Dispensed: 0 Metoprolol Succinate ER 50 mg oral tablet, extended release 1 tablet = 50 mg, By Mouth, Daily, 0 Refills, Maintenance, 07/24/20 9:09:00 AM EDT Start Date: 07/24/20 Status: Ordered Medication Dispense Status: Completed Total Allowed Fills: 1 Fills Dispensed: 0 Multivitamin 1 tablet, By Mouth, Daily, 0 Refills, Maintenance, 10/19/24 8:36:00 AM EST, Partial fill upon patientrequest if the prescription is for a schedule II opioid drug. Start Date: 10/19/24 Status: Ordered Medication Dispense Status: Completed Total Allowed Fills: 1 Fills Dispensed: 0 Potassium Chloride (Eqv-K-Tab) 20 mEq oral tablet, extended release 1 tablet = 20 mEq, By Mouth, Daily, # 30 tablet, 0 Refills, Maintenance, 10/19/24 8:37:00 AM EST, ER Tablet, Partial fill upon patient request if the prescription is for a schedule II opioid drug. Start Date: 10/19/24 Status: Ordered Medication Dispense Status: Completed Quantity: 30.0 Unit: tablet Total Allowed Fills: 1 Fills Dispensed: 0 Protonix 40 mg oral delayed release tablet = 40 mg, By Mouth, 2 times a day, 0 Refills, Maintenance, 10/19/24 4:20:00 PM EST, EC Tablet Start Date: 10/19/24 Status: Ordered Medication Dispense Status: Completed Total Allowed Fills: 1 Fills Dispensed: 0 Vitamin B12 1000 mcg oral tablet 1 tablet = 1,000 mcg, By Mouth, Daily, # 30 tablet, 0 Refills, Maintenance, 07/24/20 4:09:00 PM EDT,Tablet Start Date: 07/24/20 Status: Ordered Medication Dispense Status: Completed Quantity: 30.0 Unit: tablet Total Allowed Fills: 1 Fills Dispensed: 0 Vitamin C = 500 mg, By Mouth, Daily, 0 Refills, Maintenance, 11/29/23 11:13:00 AM EST, Partial fill upon patient request if the prescription is for a schedule II opioid drug. Start Date: 11/29/23 Status: Ordered Medication Dispense Status: Completed Total Allowed Fills: 1 Fills Dispensed: 0 Zocor 20 mg oral tablet 20 mg, 1, tablet, By Mouth, Daily at bedtime, # 30 tablet, Refills 0, Maintenance, 07/24/20 9:06:00 AM EDT Start Date: 07/24/20 Status: Ordered Medication Dispense Status: Completed Quantity: 30.0 Unit: tablet Total Allowed Fills: 1 Fills Dispensed: 0 Problem List Condition Confirmation Course Effective Dates Status Health St atus Informant Symptomatic anemia Confirmed Active Weakness Confirmed Active Atrial fibrillation Confirmed Active RODRIGUEZ (dyspnea on exertion) Confirmed Active Hyperlipemia Confirmed Active HTN (hypertension) Confirmed Active Hypothyroid Confirmed Active Obese class I Confirmed Active Social History Social History Type Response Smoking Status Never (less than 100 in lifetime) entered on: 04/05/21 Sex Sex Representation Female (finding) Patient Care team information Care Team Personnel Name: Ying Acevedo RN Position: [facility] RN Member Role: Primary Care Nurse Name: Zoe Reid RN Position: S RN Member Role: Primary Care Nurse Name: Frances García Position: Reference Physician Member Role: PCP Address: [address] [place], [place] [id number]- Telecom: Name: Jaylin Treviño RN Position: S RN Member Role: Primary Care Nurse Name: Jacques Allred RN Position: S RN Member Role: Primary Care Nurse Name: Itzel Juarez RN Position: [facility] ED RN W/OE and Tasks Member Role: Primary Care Nurse Name: Amanda Hoover RN Position: [facility] RN Member Role: Primary Care Nurse Name: Mathew Elizabeth RN Position: [facility] RN Member Role: Primary Care Nurse Name: Inocencia Joseph RN Position: [facility] RN Member Role: Primary Care Nurse Name: Patricia Horowitz RN Position: [facility] RN Member Role: Primary Care Nurse Name: Stacia Saenz RN Position: [facility] RN Member Role: Primary Care Nurse Name: Nuzhat Esparza RN Position: [facility] RN Member Role: Primary Care Nurse Name: Destin Kelsey RN Position: [facility] RN Member Role: Primary Care Nurse Care Team Related Persons Name: DAVIDDIONNA ISABELLE Insurance Providers Guarantor name: [facility] [employer] [facility] Information #: 1 Payer: [facility] MEDICARE ADV PPO Payer Identifier: NA Member Number: [id number] Group Number: [id number] Subscriber Identifier: NA Relationship to Subscriber: self Coverage Type: Medicare PPO Coverage Verification Date: Telecom: NA Address:
--- NOTE | 2025-08-30 08:26 | A.OFFPC_ITS ---
Vital Signs 08/30/25 08:28 Height 5 ft 5 in Weight 187 lb BMI 31.1 BP 112/62 Blood Pressure Location Lt brachial Position Sitting Respiration 16 Pulse 69 Pulse Source Pulse Oximeter Pulse Oximetry (%) 100 Oxygen Delivery Method Room Air Intake Visit Reasons: bp check Intake Note: Blood pressure check Metallurgy Laboratory Technician Required: No Accompanied by: Daughter Allergies codeine Allergy (Intermediate, Verified 08/30/25 08:27) Swelling Medication List - Last Reconciled 08/30/25 by Frances Ledezma PA-C apixaban (Eliquis) 5 mg PO BID biotin PO DAILY cholecalciferol (vitamin D3) PO DAILY ferrous sulfate ER mg PO furosemide 20 mg PO DAILY levothyroxine 137 mcg PO DAILY mecobalamin (vitamin B12) PO DAILY metoprolol succinate ER 25 mg PO DAILY simvastatin 20 mg PO BEDTIME Tobacco use date assessed: 08/30/25 Dental Screening Dental Screen Date: 07/04/25 HPI bp check HPI Details Pt is an 85 y/o female with a significant past medical hx of htn, hld, afib, prior cva (approximately 2014), s/p partial colectomy due to colon cancer who presents today for a follow up accompanied today by her daughter. She is here today for a blood pressure rechecked. At our last visit I lowered her metoprolol. HEENT: has left sided recurrent nose bleeds. seeing ENT in November. They last only a few minutes and she knows to go to urgent care if it lasts longer. GI: nov 2024 had colon ca and s/p partial resection. Following with Dr. Marcos and had a CT of the abdomen and pelvis last week and states that no signs of malignancy. She states the colonoscopy was normal. CV: She is following with [facility] hx of afib on ac, bp today is 112/62. She is on Eliquis 5 mg twice a day, furosemide, and metoprolol 25 mg. She is following with [facility]. Cholesterol is managed with simvastatin. Endo: Last TSH was elevated and patient previously had not been taking levothyroxine since October. She states that she restarted it this last month. 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 Her daughter states that she really wants to be present at all visits because the patient has a hard time remembering what happens at doctor's visits. Msk: bilateral knee pain and swelling and seeing ortho tomorrow. She does point to most of the pain being in the medial aspect of the knees and thinks it is related to the leg swelling. She does have signs of lymphedema. Her legs she states have always looked like this. She does at times get lower leg pain with the swelling but nothing persistent. Compliant with her Eliquis Mammo: Does not want PFSH Surgical History (Updated 02/21/25 @ 13:57 by Lucie Moon CMA) H/O gastric sleeve Family History (Updated 02/21/25 @ 13:56 by Lucie Moon CMA) Other Family history unknown Social History (Updated 02/21/25 @ 14:03 by Lucie Moon CMA) Housing: House Alcohol intake: current Patient Tobacco Use Status: Never used Tobacco e-Cigarette/Vaping Use: Never Used Second Hand Smoke Exposure: No service: No Current occupational status: retired Current occupational exposures/hazards: No Cognitive needs: No Hearing needs: No Vision needs: No Questionnaire Thrive Questionnaire Date Thrive assessed: 02/21/25 I am a: Patient What is your living situation today?: I have a steady place to live Within the past 12 months, did the food you bought not last and you didn't have the money to get more?: Never true Within the past 12 months, did you worry whether your food would run out before you got money to buy more?: Never true Do you have trouble paying for medicines?: Yes Do you have trouble getting transportation to medical appointments?: No Do you have trouble paying your heating and electricity bill?: No Do you have trouble taking care of your child, family member or friend?: No Do you have trouble with day-to-day activities such as bathing, preparing meals, shopping, managing finances, etc.?: No Are you currently unemployed and looking for a job?: No Are you interested in more education?: No Please select the resources that you would like help with: Paying for medicine Currently or been in a relationship where the following occur: No concerns reported THRIVE Score: 0 AUDIT C Alcohol Use Questionnaire (AUDIT-C) 1. How often do you have a drink containing alcohol?: 4 or more times a week 2. How many drinks containing alcohol do you have on a typical day when you are drinking?: 1 or 2 3. How often do you have six or more drinks on one occasion?: Never Total Score: 4 MARCELINA-7 AMB Questionnaire MARCELINA-7 Date MARCELINA - 7 assessed: 02/21/25 Source: Developed by Drs. Doyle Christianson, Poonam Orozco, Alfonzo Piña and colleagues, with an educational leah from [employer]. Physical exam (Primary Care) Tobacco/Smoking Status: Tobacco use Status Tobacco use date assessed 08/09/25 08/30/25 08:27 Patient Tobacco Use Status Never used Tobacco 08/30/25 08:27 e-Cigarette/Vaping Use Never Used 08/30/25 08:27 Thrive Assessment: Date of Thrive Assessment Date Thrive assessed 02/21/25 08/30/25 08:27 Currently or been in a relationship where the following occur: No concerns reported Const Orientation/consciousness: patient oriented x3 HENMT Ears: hearing grossly normal bilaterally Neck Thyroid: Thyroid normal Lymphatic: no lymphadenopathy noted Resp Auscultation: clear to auscultation bilaterally Cardio Rate: regular rate Rhythm: regular rhythm Heart sounds: S1 normal heart sound present and S2 normal heart sound present Skin General skin exam: no rashes or lesions noted Neuro General: patient oriented x3, gait normal and no focal motor deficits Extrem Other: Lower leg swelling noted. Normal capillary refill. No calf pain Results Reviewed Results Reviewed: Laboratory Tests 03/21/25 05/09/25 13:54 12:30 WBC 5.1 RBC 4.38 Hgb 12.1 Hct 38.2 Plt Count 167 Sodium 142 Potassium 4.6 Chloride 105 Carbon Dioxide 29 Anion Gap 13 BUN 18 H Creatinine 0.76 Estimated GFR > 60 Random Glucose 102 Triglycerides 55 Cholesterol 143 LDL Cholesterol, Calc 60 HDL Cholesterol 72 TSH 8.11 H 9.69 H Free T4 0.92 0.90 Coding Level of Care Code Est Pt Level 4 (37815) Complex EM visit Add On G2211 Diagnoses Dyslipidemia E78.5 Hypothyroid E03.9 Lymphedema of leg I89.0 HTN (hypertension) I10 Assessment & Plan Assessment & Plan (1) Dyslipidemia: Code(s): E78.5 - Hyperlipidemia, unspecified Category: Medical Plan: Continue simvastatin (2) Hypothyroid: Code(s): E03.9 - Hypothyroidism, unspecified Category: Medical Plan: Advised to take the levothyroxine consistently We will plan to recheck labs next month (3) Lymphedema of leg: Code(s): I89.0 - Lymphedema, not elsewhere classified Category: Medical Plan: Referral to lymphedema clinic (4) HTN (hypertension): Code(s): I10 - Essential (primary) hypertension Category: Medical Plan: WNL. Continue current regimen Plan Labs ordered. We have a short term follow up arranged. Orders: Orders US venous duplex LE BI Today M79.669 - Pain in unspecified lower leg, M79.89 - Other specified soft tissue disorders Referrals Lymphedema Clinic Referral I89.0 - Lymphedema, not elsewhere classified Medications: New diclofenac sodium 1% (Voltaren Arthritis Pain) apply to single knee, ankle, foot; for foot includes sole/toes/top of foot 4 grams topical QID 100 grams 4RF
[2025-08-30 08:28] VITALS: BP 112/62; PULSE 69; RESP 16; O2SAT 100; BMI 31.1
--- OUTSIDE RECORDS SUMMARY | 2025-08-30 08:37 | XMS_ITS | Encounter Summary ---
Author Organization [facility] Address [address] [place] [address] Care Team Providers Care Animal Care Attendant Name Role Phone Frances Ledezma Primary Care Provider [phone] Encounter Details Date Type Department Care Team ([facility] st Contact Info) Description 08/22/2025 Results Follow-Up [facility] - [facility] [address] [facility] 154 [place] [phone] Santa Farley PA [address] [place] [address] [place] [phone] Social History Tobacco Use Types Packs/Day Years [...] on filedocumented in this encounter Care Teams Animal Care Attendant Relationship Specialty Start Date End Date Frances Ledezma [place] [address] [place] [phone] PCP - General Physician Braider Operator 07/30/25 documented as of this encounter
--- OUTSIDE RECORDS SUMMARY | 2025-08-30 08:38 | XMS_ITS | Encounter Summary ---
Author Organization [facility] Address [address] [address] Phone Care Team Providers Care Engine Room Helper Name Role Phone Pcp, Unknown Primary Care Provider Unavailabl e Encounter Details Date Type Department Care Team (Late st Contact Info) Description 08/21/2022 Procedure Pass OR Admitting Dept - Virtual Department [address] [place] [id number] Social History Tobacco Use Types Packs/Day Years [...] on filedocumented in this encounter Care Teams Engine Room Helper Relationship Specialty Start Date End Date Pcp, Unknown PCP - General 07/10/22 documented as of this encounter Additional Source Comments The information contained in this document represents components of the legal health record. It is not the complete legal health record.[facility]
--- OUTSIDE RECORDS SUMMARY | 2025-08-30 08:38 | XMS_ITS | Clinical Summary ---
Author Organization [facility] Address [address] [place], [place] [id number] Phone Care Team Providers Care Power Line Installer And Repairer Name Role Phone Pcp, Unknown Primary Care [...] patient's age to complete this topic IPV VACCINES Aged Out No longer eligi ble [...] O MEDICARE REPLACEMENT AETNA PPO MEDICARE REPLACEMENT AETNA O MEDICARE REPLACEMENT AETNA PPO MEDICARE REPLACEMENT AETNA O MEDICARE REPLACEMENT AETNA [facility] MEDICARE REPLACEMENT AETNA PPO MEDICARE REPLACEMENT Care Teams Power Line Installer And Repairer Relationship Specialty Start Date End Date Pcp, Unknown PCP - General 07/10/22 Additional Source Comments The information contained in this document represents components of the legal health record. It is not the complete legal health record.[facility]
--- OUTSIDE RECORDS SUMMARY | 2025-08-30 08:38 | XMS_ITS | Encounter Summary ---
Author Organization [facility] Address [address] [place] [address] Care Team Providers Care Basic Sciences Professor Name Role Phone Frances Ledezma Primary Care Provider [phone] Encounter Details Date Type Department Care Team (Late st Contact Info) Description 08/02/2025 Results Follow-Up [facility] - [facility] [address] [facility] 154 [place] [phone] Santa Farley PA [address] [place] [address] [place] [phone] Social History Tobacco Use Types Packs/Day Years [...] documented in this encounter Plan of Treatment Not on file documented as of this encounter Visit Diagnoses Not on filedocumented in this encounter Care Teams Basic Sciences Professor Relationship Specialty Start Date End Date Frances Ledezma PA [address] [place] [address] PCP - General Physician Piccoloist 07/30/25 documented as of this encounter
--- OUTSIDE RECORDS SUMMARY | 2025-08-30 08:38 | XMS_ITS | Clinical Summary ---
Author Organization [facility] [address] [place] [address] [place] [phone] Phone Care Team Providers Care Forest Patrolman Name Role Phone Frances Ledezma Primary Care Provider [phone] Allergies Active Allergy Reactions Criticality Noted Date [...] square meter and albuminuria creatinine ratio les* ([facility] V24, CMS/HCC V28) 06/21/2018 Vitamin D deficiency 03/29/2018 Paroxysmal atrial fibrillation (CMS/HCC V24, CMS /HCC V28) 10/14/2016 Overview (09/28/2024): Last Assessment & [...] mg orally twice a day given her [id number]-LSPj score of 6. As such, at this point, we will continue her current medication regimen. DJD (degenerative joint disease) of knee 015 Varicose veins of both lower extremities 009 Encounters Date Type Department Care Team Description 08/22/2025 10:40 AM EST - 08/22/2025 11:59 PM EST Hospital Encounter [facility] Pulmonary [address] [place] [address] Paroxysmal atrial fibrillation (CMS/[facility] V24, CMS/HCC V28); Chronic kidney disease (CKD) stage G3a/A1, moderately decreased glomerular filtration rate (GFR) between 45-59 mL/min/1.73 square meter and albuminuria creatinine ratio les* (CMS/HCC V24, CMS/HCC V28); Lower leg edema; Snoring; Primary hypertension; On amiodarone therapy Discharge Disposition: Home or Self Care 08/22/2025 Results Follow-Up [facility]iology [facility] [address] [address] [place] [address] Santa Farley PA 08/02/2025 Results Follow-Up [facility] [address] [place] [address] Santa Farley PA 07/30/2025 7:40 AM EDT Office Visit [facility] [address] [place] [phone] [place] PA Paroxysmal atrial fibrillation (CMS/HCC [...] square meter and albuminuria creatinine ratio les* ([facility] V24, [facility] V28) 06/21/2018 DX:Chronic kidne y disease (CKD) stage G3a/A1, moderately decreased glomerular filtration rate (GFR) between 45-59 mL/min/1.73 square meter and albuminuria creatinine ratio less than 30 mg/g ([facility]) DJD (degenerative joint dise ase) of knee 09/10/2015 DX:DJD (degenerative joint d isease) of knee History of CVA (cerebrovascu lar accident) 11/09/2017 DX:History of CVA (cerebrova scular accident) Paroxysmal atrial fibrillati on ([facility] V24, [facility] V28) 10/14/2016 DX:Paroxysmal atrial fibril lation ([facility]) Varicose veins 08/27/2009 DX:Varicose vein s Vitamin [...] 07/30/2025 7:50 AM EDT Plan of Treatment Health Maintenance Due [...] Procedure Name Priority Date/Time Associated Diagnosis Comments HC SPIROMETRY BRONCHODILATION RESPONSIVENESS PRE/POST BRONCHODILATOR ADMINISTRATION Routine 08/22/2025 11:36 AM EST Paroxysmal atrial fibrillation (CMS/HCC V24, CMS/HCC V28) Chronic kidney disease (CKD) stage G3a/A1, moderately decreased glomerular filtration rate (GFR) between 45-59 mL/min/1.73 square meter and albuminuria creatinine ratio les* (CMS/HCC V24, CMS/HCC V28) Lower leg edema Snoring Primary hypertension On amiodarone therapy EXTERNAL CLINICAL LAB Routine 07/30/2025 9:20 AM EDT ECG 12-LEAD Routine 07/30/2025 8:15 AM EDT Paroxysmal atrial fibrillation (CMS/HCC V24, CMS/HCC V28) ANNUAL BMP BLOOD TEST Routine 06/09/2024 LIPID PANEL Routine 05/11/2023 DXA BONE DENSITY STUDY 1+ SITS AXIAL SKEL Routine 11/11/2020 11:44 AM EST Bilateral primary osteoarthritis of knee from Last 3 Months or Most Recently Relevant to Health Maintenance Results * Pulmonary function testing: Carbon Monoxide Diffusing Capacity, Nitrogen Wash Out, Spirometry with Bronchodilator (08/22/2025 11:36 AM EST) Narrative Enedina Kohler MD - 08/22/2025 1:27 PM EST Table formatting from the original result was not included. Images from the original result were not included. [facility] Pulmonary Lab [address] [place] [id number] Pulmonary Functions Report Date of service: 08/22/25 Patient Name: Zoran Sultana Date of : 1940 Age: 85 y.o. Gender: female Procedure Order: Pulmonary function testing: Carbon Monoxide Diffusing Capacity, Nitrogen Wash Out, Spirometry with Bronchodilator Ordering Provider: CAREN Vazquez Reason for Exam: Order Questions Answers Reason for Exam: salvage determiner amiodarone use Which PFTs would you like to perform? Carbon Monoxide Diffusing Capacity,Nitrogen Wash Out,Spirometry with Bronchodilator Diagnosis listed on Order: Snoring, Primary hypertension, Paroxysmal atrial fibrillation ([facility] V24, [facility] V28), Lower leg edema, Chronic kidney disease (CKD) stage G3a/A1, moderately decreased glomerular filtration rate (GFR) between 45-59 mL/min/1.73 square meter and albuminuria creatinine ratio les* (CMS/HCC V24, CMS/[facility] V28), On amiodarone therapy Pulmonary Test Finding: Spirometry/ Flow Volume Loop: FEV1/FVC 79%. FEV1 is 1.68 at 83%, w/ z score -0.89. FVC is 78%. No bronchodilator response. Lung Volumes: TLC is 77%, w/ z score -1.67. RV is 81%. RV/TLC 104%. Diffusion Capacity: DLCO is 71%, (adjusted 71%). Shape of the flow-volume loop showed neither intrathoracic nor extrathoracic obstruction. Quality of Study: Meets ATS criteria for acceptability and repeatability Refer to scanned report for all additional results and graphs. Interpretation/Impression: No obstruction. Mild restriction. Mild decrease in diffusion. Findings consistent with mild restrictive lung disease. Santa FABIAN PFT ORDERABLES Final Result * External clinical lab (07/30/2025 9:20 AM EDT) Historical Provider LAB BLOOD ORDERABLES Edit ed Result - Final * ECG 12 lead (07/30/2025 8:15 AM EDT) Ventricular Rate ECG 65 BPM GEMUSE Atrial Rate 65 BPM GEMUSE P-R Interval 150 ms GEMUSE QRS Duration 72 ms GEMUSE Q-T Interval 436 ms GEMUSE QTc 453 ms GEMUSE P Wave Independence 83 degrees GEMUSE R Independence 40 degrees GEMUSE T Independence 12 degrees GEMUSE ECG Interpretation Sinus rhythm GEMUSE 07/30/2025 7:57 AM EDT Santa FABIAN ECG ORDERABLES Final Result GEMUSE * Annual BMP Blood Test (06/09/2024) Pathologist [facility] Annual BMP Blood Test Abstracted Historical Provider HEALTH MAINTENANCE Final Result * Lipid panel (05/11/2023) [facility] LDL/HDL Ratio 2 0 - 4 Triglycerides [...] scores not able to be calculated. [facility] Department of Internal Medicine recommends using [...] alternative screening schedule based on fabiano Glass., [facility] November 05, 2011 for patients with osteopenia [...] scores not able to be calculated. [facility] Department of Internal Medicine recommendsusing National [...] alternative screening schedule based on fabiano Glass., [facility] for patients with [facility]openia (based on hip BMD T-score) is as follows: * advanced osteopenia (T scores -2.00 to -2.49), BMD testing every year * moderate osteopenia (T scores -1.50 to -1.99), BMD testing every 5years mild osteopenia or normal BMD (T scores -1.50 and higher), BMD testingevery 15 years Luly Castro MD [facility] DXA PROCEDURES Carmen l Result from Last 3 Months or Most Recently Relevant to Health Maintenance Insurance [employer] MEDICARE ADVANTAGE Care Teams Forest Patrolman Relationship Specialty Start Date End Date Frances Ledezma PA [address] [place] [phone] PCP - General Physician National Accounts Recruiter 07/30/25
== END 2025-08-30 08:46 | disposition home or self-care (01) ==
LOC: HO.HMCFM 08:19
PROVIDERS: PCP Physician Assistant; Visit Provider Physician Assistant
DX: E78.5 Hyperlipidemia, unspecified (principal); E03.9 Hypothyroidism, unspecified; I89.0 Lymphedema, not elsewhere classified; I10 Essential (primary) hypertension

== ENCOUNTER 2025-08-31 08:51 | Outpatient (REF) | payer MEDICARE, SELFPAY ==
--- NOTE | ~2025-08-31 | XR_ITS ---
EXAMINATION: X-ray right knee X-ray left knee CLINICAL INFORMATION: Pain COMPARISON: X-ray 07/12/2024 TECHNIQUE: AP bilateral knees one view. Right knee 2 views. Left knee 2 views. FINDINGS: Right knee: Severe medial compartment arthritis. Mild-moderate lateral, moderate patellofemoral arthritis. No visible acute fracture, dislocation or suspicious bony lesion. Small effusion. Superior patellar insertional enthesopathy. Left knee: Moderate tricompartment arthritis. No visible acute fracture, dislocation or suspicious bony lesion. Small-moderate effusion. Superior patellar enthesopathy... XR/XR knee LT 3V IMPRESSION: Right knee: Tricompartment osteoarthritis.Severe medial compartment arthritis. Small effusion. Left knee: Moderate tricompartment osteoarthritis. Small-moderate effusion. Electronically signed by: Reese Tavera MD 08/31/2025 03:53 PM [facility]
--- NOTE | ~2025-08-31 | XR_ITS ---
EXAMINATION: X-ray right knee X-ray left knee CLINICAL INFORMATION: Pain COMPARISON: X-ray 07/12/2024 TECHNIQUE: AP bilateral knees one view. Right knee 2 views. Left knee 2 views. FINDINGS: Right knee: Severe medial compartment arthritis. Mild-moderate lateral, moderate patellofemoral arthritis. No visible acute fracture, dislocation or suspicious bony lesion. Small effusion. Superior patellar insertional enthesopathy. Left knee: Moderate tricompartment arthritis. No visible acute fracture, dislocation or suspicious bony lesion. Small-moderate effusion. Superior patellar enthesopathy... XR/XR knee RT 3V IMPRESSION: Right knee: Tricompartment osteoarthritis.Severe medial compartment arthritis. Small effusion. Left knee: Moderate tricompartment osteoarthritis. Small-moderate effusion. Electronically signed by: Reese Tavera MD 08/31/2025 03:53 PM EST
== END 2025-08-31 08:52 | disposition home or self-care (01) ==
LOC: HO.HOSX 08:51
PROVIDERS: Visit Provider Physician Assistant
DX: M17.0 Bilateral primary osteoarthritis of knee (principal)
CPT/HCPCS: 20610; 73562; J0665; J1100; J2003

== ENCOUNTER 2025-08-31 09:39 | Outpatient (AMB) | payer OTHER, SELFPAY ==
[2025-08-31 10:11] VITALS: BMI 30.4
--- NOTE | 2025-08-31 10:11 | A.OFFVIS_ITS ---
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 Patient reports ongoing pain and swelling since November. Patient notices that her pain is posterior of her knees. She states both are equal to pain. Patient is going to be established at a Lymphedema Therapy Clinic soon. She notices that her pain is worse when she is walking for a long period of time and standing still for a while. Patient reports having no relief with voltaren cream. 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 Sultana is an 85-year-old female who presents to the office today for evaluation of bilateral knee pain due to osteoarthritis. She reports the pain has been present since November of this year. She denies any injury or trauma. She is scheduled to see a lymphedema clinic for bilateral lower extremity edema. [facility] Surgical History (Updated 02/21/25 @ 13:57 by Lucie Moon CMA) H/O gastric sleeve Family History (Updated 02/21/25 @ 13:56 by Lucie Moon CMA) Other Family history unknown Social History (Updated 08/31/25 @ 10:12 by Raymundo Waite) Housing: House Alcohol intake: current Alcohol intake frequency: holidays/special occasions only Patient Tobacco Use Status: Never used Tobacco e-Cigarette/Vaping Use: Never Used Second Hand Smoke Exposure: No service: No Current occupational status: retired Current occupational exposures/hazards: No Cognitive needs: No Hearing needs: No Vision needs: No Review of Systems Const All systems reviewed & are unremarkable except as noted in HPI and below Physical Exam Vital Signs: BMI result Body Mass Index 30.4 Const General: cooperative, healthy appearing and no acute distress Resp Effort & Inspection: normal respiratory effort and able to speak in complete sentences Extrem Other: Bilateral lower extremity edema noted from lymphedema. Range of motion 0-110 degrees. Tenderness to palpation both medial and lateral joint lines. NVI. Psych Appearance: grossly normal Mental Status: mental status grossly normal Attitude: cooperative Office Procedures AMB Joint Injection/Aspiration Joint Injection/Aspiration Primary Site: Right Knee Secondary Site: Left Knee Prep: site was prepped using aseptic technique, ethochloride spray was applied and injection warnings given Injected: 40 mg of, Decadron, with 3 mL of, 1% plain Lidocaine, 0.25% Bupivacaine and in the joint Approach Used: anterolateral Procedure: The patient tolerated the procedure well, but had some pain with the injection and there was some relief with the local anesthesia Coding - Bilateral Large Joint Procedure code (CPT) selection complete Assessment & Plan Assessment & Plan (1) Osteoarthritis of knees, bilateral: Code(s): M17.0 - Bilateral primary osteoarthritis of knee Category: Medical Qualifiers: Osteoarthritis type: primary Qualified Code(s): M17.0 - Bilateral primary osteoarthritis of knee Plan Ms. Sultana is an 85-year-old female who presents to the office today for evaluation of bilateral knee pain due to osteoarthritis. She reports the pain has been present since November of this year. She denies any injury or trauma. She is scheduled to see a lymphedema clinic for bilateral lower extremity edema. The patient was offered a cortisone injections in bilateral knees. The patient was explained the risks, benefits, and alternatives to receiving this injection. After receiving consent for the injection, the patient had the procedure done while in the office today. The patient tolerated the procedure well with no complications. Follow-up will be PRN, or sooner if needed. X-rays of bilateral knees which were obtained while in the office today and were reviewed by me, Natali Shelley PA-C, revealed osteoarthritis. Orders: Orders XR knee LT 3V Today M25.569 - Pain in unspecified knee XR knee RT 3V Today M25.569 - Pain in unspecified knee Coding Level of Care Code New Pt Level 3 (43313) Diagnoses Primary osteoarthritis of both knees M17.0 Osteoarthritis type: primary CPT Codes Coding - 59616 - Bilateral Large Joint: 46652 - Bilateral Large Joint ([id number])
--- OUTSIDE RECORDS SUMMARY | 2025-08-31 10:45 | XMS_ITS | Encounter Summary ---
Author Organization [facility] Address [address] [address] Phone Care Team Providers Care Outreach Consultant Name Role Phone Pcp, Unknown Primary Care Provider Unavailabl e Encounter Details Date Type Department Care Team (Late st Contact Info) Description 08/21/2022 Procedure Pass OR Admitting Dept - Virtual Department [address] [place] [address] Social History Tobacco Use Types Packs/Day Years [...] on filedocumented in this encounter Care Teams Outreach Consultant Relationship Specialty Start Date End Date Pcp, Unknown PCP - General 07/10/22 documented as of this encounter Additional Source Comments The information contained in this document represents components of the legal health record. It is not the complete legal health record.[facility]
--- OUTSIDE RECORDS SUMMARY | 2025-08-31 10:45 | XMS_ITS | Encounter Summary ---
Author Organization [facility] Address [address] [place] [address] Care Team Providers Care Speech And Hearing Director Name Role Phone Frances Ledezma Primary Care Provider [phone] Encounter Details Date Type Department Care Team ([facility] st Contact Info) Description 08/22/2025 Results Follow-Up [facility] - [facility] 154 [address] [facility] 154 [place] [phone] Santa Farley PA [address] [place] [address] [place] [phone] Social History Tobacco Use Types Packs/Day Years [...] on filedocumented in this encounter Care Teams Speech And Hearing Director Relationship Specialty Start Date End Date Frances Ledezma PA [address] [place] [phone] PCP - General Physician Manufacturing Storeperson 07/30/25 documented as of this encounter
--- OUTSIDE RECORDS SUMMARY | 2025-08-31 10:45 | XMS_ITS | Clinical Summary ---
Author Organization [facility] Address [address] [place], [place] [id number] Phone Care Team Providers Care Gravel Roofer Name Role Phone Pcp, Unknown Primary Care [...] MEDICARE REPLACEMENT AETNA O MEDICARE REPLACEMENT AETNA [facility] MEDICARE REPLACEMENT AETNA PPO MEDICARE REPLACEMENT Care Teams Gravel Roofer Relationship Specialty Start Date End Date Pcp, Unknown PCP - General 07/10/22 Additional Source Comments The information contained in this document represents components of the legal health record. It is not the complete legal health record.[facility]
--- OUTSIDE RECORDS SUMMARY | 2025-08-31 10:45 | XMS_ITS | Clinical Summary ---
Author Organization [facility] [address] [place] [address] [place] [phone] Phone Care Team Providers Care Buckle Strap Drum Operator Name Role Phone Frances Ledezma Primary Care Provider [phone] Allergies Active Allergy Reactions Criticality Noted Date Comments Codeine Headache 09/28/2006 Medications potassium chloride 20 mEq tablet extended release Take 1 tablet by mouth 1 (one) time each day. 05/29/20 24 Active cyclobenzaprine (FLEXERIL) 5 mg tablet Take 1 tablet (5 mg total) by mouth 3 (three) times a day if needed. 01/31/20 24 Active calcium carbonate-vit D3-min 600 mg-10 mcg (400 unit) tablet Take 1 tablet by mouth 1 (one) time each day. 12/31/19 16 Active cyanocobalamin (VITAMIN B-12) 1,000 mcg tablet Take 1 tablet (1,000 mcg total) by mouth 1 (one) time each day. 12/31/19 16 Active ascorbic acid (VITAMIN C) 500 mg tablet Take 1 tablet (500 mg total) by mouth 1 (one) time each day. 03/31/20 12 Active glucosamine/cho ndro griffin A/C/Mn (GLUCOSAMINE-CH ONDROITIN COMPLX ORAL) Take 1 capsule by mouth 1 (one) time each day. 12/31/19 16 Active multivitamin (Daily Multi-Vitamin) tablet Take 1 tablet by mouth 1 (one) time each day. 03/31/20 12 Active metoprolol succinate (TOPROL-XL) 50 mg 24 hr tablet Take 1 tablet (50 mg total) by mouth 1 (one) time each day. 90 tablet 1 10/16/20 24 Active amiodarone (PACERONE) 200 mg tablet Take 0.5 tablets (100 mg total) by mouth 1 (one) time each day. 90 tablet 1 10/16/20 24 Active levothyroxine (SYNTHROID, LEVOTHROID) 125 mcg tablet Take 1 tablet (125 mcg total) by mouth 1 (one) time each day. 90 tablet 1 10/16/20 24 Active apixaban (Eliquis) 5 mg tablet Take 1 tablet (5 mg total) by mouth 2 (two) times a day. 180 tablet 1 10/16/20 24 Active KLOR-CON 20 mEq CR tablet TAKE 1 TABLET BY MOUTH EVERY DAY 90 tablet 01/04/20 25 Active Additional Information Patient not taking.Reported on 07/30/2025 simvastatin (ZOCOR) 20 mg tablet Take 1 tablet (20 mg total) by mouth 1 (one) time each day. 90 tablet 01/04/20 25 Active furosemide (LASIX) 20 mg tabletIndicatio ns:Paroxysmal atrial fibrillation (CMS/HCC V24, CMS/HCC V28),Essential (primary) hypertension Take 1 tablet (20 mg total) by mouth 1 (one) time each day. 90 tablet 2 08/30/20 25 Active furosemide (LASIX) 20 mg tabletIndicatio ns:Paroxysmal atrial fibrillation (CMS/HCC V24, CMS/HCC V28),Essential (primary) hypertension TAKE 1 TABLET BY MOUTH TWICE A DAY 180 tablet 3 10/10/20 24 025 Discontinued Active Problems Problem Noted Date Diagnosed Date [...] square meter and albuminuria creatinine ratio les* ([facility] V24, [facility] V28) 06/21/2018 Vitamin D deficiency 03/29/2018 Paroxysmal atrial fibrillation ([facility] V24, [facility] V28) 10/14/2016 Overview (09/28/2024): Last Assessment & [...] mg orally twice a day given her [id number] score of 6. As such, at this point, we will continue her current medication regimen. DJD (degenerative joint disease) of knee 015 Varicose veins of both lower extremities 009 Encounters Date Type Department Care Team Description 08/22/2025 10:40 AM EST - 08/22/2025 11:59 PM EST Hospital Encounter [facility] Pulmonary [address] [place] [phone] Paroxysmal atrial fibrillation (CMS/HCC V24, CMS/HCC V28); Chronic kidney disease (CKD) stage G3a/A1, moderately decreased glomerular filtration rate (GFR) between 45-59 mL/min/1.73 square meter and albuminuria creatinine ratio les* (CMS/HCC V24, CMS/HCC V28); Lower leg edema; Snoring; Primary hypertension; On amiodarone therapy Discharge Disposition: Home or Self Care 08/22/2025 Results Follow-Up [facility] Cardiology [facility] [address] [place] [address] Santa Farley PA 08/02/2025 Results Follow-Up [facility]iology [facility] [address] [facility] [address] [place] [address] Santa Farley PA 07/30/2025 7:40 AM EDT Office Visit [facility]iology [facility] [address] [place] [address] Santa Farley PA Paroxysmal atrial fibrillation (CMS/HCC [...] square meter and albuminuria creatinine ratio les* ([facility] V24, [facility] V28) 06/21/2018 DX:Chronic kidne y disease (CKD) stage G3a/A1, moderately decreased glomerular filtration rate (GFR) between 45-59 mL/min/1.73 square meter and albuminuria creatinine ratio less than 30 mg/g ([facility]) DJD (degenerative joint dise ase) of knee 09/10/2015 DX:DJD (degenerative joint d isease) of knee History of CVA (cerebrovascu lar accident) 11/09/2017 DX:History of CVA (cerebrova scular accident) Paroxysmal atrial fibrillati on ([facility] V24, [facility] V28) 10/14/2016 DX:Paroxysmal atrial fibril lation ([facility]) Varicose veins 08/27/2009 DX:Varicose vein s Vitamin [...] from the original result were not included. [facility] Pulmonary Lab [address] [place] [address] Pulmonary Functions Report Date of service: 08/22/25 Patient Name: Zoran Sultana Date of : 1940 Age: 85 y.o. Gender: female Procedure Order: Pulmonary function testing: Carbon Monoxide Diffusing Capacity, Nitrogen Wash Out, Spirometry with Bronchodilator Ordering Provider: CAREN Vazquez Reason for Exam: Order Questions Answers Reason for Exam: fpc amiodarone use Which PFTs would you like to perform? Carbon Monoxide Diffusing Capacity,Nitrogen Wash Out,Spirometry with Bronchodilator Diagnosis listed on Order: Snoring, Primary hypertension, Paroxysmal atrial fibrillation (CMS/HCC V24, CMS/HCC V28), Lower leg edema, Chronic kidney disease (CKD) stage G3a/A1, moderately decreased glomerular filtration rate (GFR) between 45-59 mL/min/1.73 square meter and albuminuria creatinine ratio les* (CMS/HCC V24, CMS/HCC V28), On amiodarone therapy Pulmonary Test Finding: [...] GEMUSE QTc 453 ms GEMUSE P Wave [place] 83 degrees GEMUSE R [place] 40 degrees GEMUSE T [place] 12 degrees GEMUSE ECG Interpretation Sinus rhythm GEMUSE 07/30/2025 7:57 AM EDT Santa FABIAN ECG ORDERABLES Final Result GEMUSE * Annual BMP Blood Test (06/09/2024) Pathologist [facility] Annual BMP Blood Test Abstracted Historical Provider HEALTH MAINTENANCE Final Result * Lipid panel (05/11/2023) [facility] LDL/HDL Ratio 2 0 - 4 Triglycerides [...] alternative screening schedule based on fabiano Glass., [facility] November 05, 2011 for patients [...] BMD testingevery 15 years Luly Castro MD [facility] DXA PROCEDURES Carmen l Result from Last 3 Months or Most Recently Relevant to Health Maintenance Insurance AETNA MEDICARE ADVANTAGE Care Teams Buckle Strap Drum Operator Relationship Specialty Start Date End Date Frances Ledezma PA [address] [place] [phone] PCP - General Physician Customer Support Consultant 07/30/25
--- OUTSIDE RECORDS SUMMARY | 2025-08-31 10:45 | XMS_ITS | Encounter Summary ---
Author Organization [facility] Address [address] [place] [address] Care Team Providers Care Road Freight Conductor Name Role Phone Frances Ledezma Primary Care Provider [phone] Encounter Details Date Type Department Care Team (Late st Contact Info) Description 08/02/2025 Results Follow-Up [facility] - [facility] [address] [facility] 154 [place] [phone] Santa Farley PA [address] [place] [address] [place] [phone] Social History Tobacco Use Types Packs/Day Years [...] on filedocumented in this encounter Care Teams Road Freight Conductor Relationship Specialty Start Date End Date Frances Ledezma PA [address] [place] [address] PCP - General Physician Hadoop Developer 07/30/25 documented as of this encounter
== END 2025-08-31 10:42 | disposition home or self-care (01) ==
LOC: HO.HOS 09:40
PROVIDERS: PCP Physician Assistant; Visit Provider Physician Assistant
DX: M17.0 Bilateral primary osteoarthritis of knee (principal)
CPT/HCPCS: 20610; 99203

== ENCOUNTER → 2025-08-31 09:48 | Outpatient (BNV) | payer OTHER, SELFPAY | PROVIDERS: Visit Provider Radiology Diagnostic Ultrasound | DX: M17.0 Bilateral primary osteoarthritis of knee (principal) | CPT/HCPCS: 73562 ==

== ENCOUNTER 2025-09-10 12:21 | Outpatient (REF) | payer MEDICARE, SELFPAY ==
--- NOTE | ~2025-09-10 | US_ITS ---
EXAMINATION: US TRIPLEX LOWER EXTREMITY, BILATERAL CLINICAL INFORMATION: Bilateral lower extremity pain COMPARISON: None available. TECHNIQUE: Color-flow triplex imaging with spectral analysis and compression Doppler were performed on the bilateral lower extremities. FINDINGS: Respiratory variation, normal compression and augmented flow are noted throughout the bilateral lower extremities. The visualized common femoral vein, superficial femoral vein, profunda femoral vein, popliteal vein and midcalf peroneal and posterior tibial venous segments show no evidence of deep venous thrombosis bilaterally. US/US venous duplex LE BI IMPRESSION: No evidence of deep venous thrombosis involving the bilateral lower extremities. Electronically signed by: Orville Lal MD 09/10/2025 01:00 PM [facility]
--- OUTSIDE RECORDS SUMMARY | 2025-09-10 16:22 | XMS_ITS | Clinical Summary ---
Author Organization [facility] [address] [place] [address] [place] [phone] Phone Care Team Providers Care Electric Gas Appliances Demonstrator Name Role Phone Frances Ledezma Primary Care Provider [phone] Allergies Active Allergy Reactions Criticality Noted Date [...] square meter and albuminuria creatinine ratio les* ([facility] V24, [facility] V28) 06/21/2018 Vitamin D deficiency 03/29/2018 Paroxysmal atrial fibrillation ([facility] V24, [facility] V28) 10/14/2016 Overview (09/28/2024): Last Assessment [...] mg orally twice a day given her [id number] score of 6. As such, at this point, we will continue her current medication regimen. DJD (degenerative joint disease) of knee 015 Varicose veins of both lower extremities 009 Encounters Date Type Department Care Team Description 08/22/2025 10:40 AM EST - 08/22/2025 11:59 PM EST Hospital Encounter [facility] Pulmonary [address] [place] [phone] Paroxysmal atrial fibrillation (CMS/HCC V24, CMS/HCC V28); Chronic kidney disease (CKD) stage G3a/A1, moderately decreased glomerular filtration rate (GFR) between 45-59 mL/min/1.73 square meter and albuminuria creatinine ratio les* (CMS/HCC V24, CMS/HCC V28); Lower leg edema; Snoring; Primary hypertension; On amiodarone therapy Discharge Disposition: Home or Self Care 08/22/2025 Results Follow-Up [facility] Cardiology [facility] [address] [place] [address] Santa Farley PA 08/02/2025 Results Follow-Up [facility] Cardiology [facility] [address] [facility] [address] [place] [address] Santa Farley PA 07/30/2025 7:40 AM EDT Office Visit [facility] Cardiology [facility] [address] [place] [address] Santa Farley PA Paroxysmal atrial fibrillation (CMS/HCC [...] square meter and albuminuria creatinine ratio les* ([facility] V24, [facility] V28) 06/21/2018 DX:Chronic kidne y disease (CKD) stage G3a/A1, moderately decreased glomerular filtration rate (GFR) between 45-59 mL/min/1.73 square meter and albuminuria creatinine ratio less than 30 mg/g ([facility]) DJD (degenerative joint dise ase) of knee 09/10/2015 DX:DJD (degenerative joint d isease) of knee History of CVA (cerebrovascu lar accident) 11/09/2017 DX:History of CVA (cerebrova scular accident) Paroxysmal atrial fibrillati on ([facility] V24, [facility] V28) 10/14/2016 DX:Paroxysmal atrial fibril lation ([facility]) Varicose veins 08/27/2009 DX:Varicose vein s [...] the original result were not included. [facility] Pulmonary Lab [address] [place] [address] Pulmonary Functions Report Date of service: 08/22/25 Patient Name: Zoran Sultana Date of : 1940 Age: 85 y.o. Gender: female Procedure Order: Pulmonary function testing: Carbon Monoxide Diffusing Capacity, Nitrogen Wash Out, Spirometry with Bronchodilator Ordering Provider: CAREN Vazquez Reason for Exam: Order Questions Answers Reason for Exam: fci amiodarone use Which PFTs would you like [...] GEMUSE QTc 453 ms GEMUSE P Wave [place] 83 degrees GEMUSE R [place] 40 degrees GEMUSE T [place] 12 degrees GEMUSE ECG Interpretation Sinus rhythm with Premature atrial complexes T wave abnormality, consider anterior ischemia When compared with ECG of 14-JUN-2023 14:17, Premature atrial complexes are now Present Confirmed by YAN SEQUEIRA ([id number]) on 09/03/2025 2:00:01 AM GEMUSE 07/30/2025 7:57 AM EDT 09/03/2025 2:00 AM EST Santa FABIAN ECG ORDERABLES Edited Result - Final GEMUSE * Annual BMP Blood Test (06/09/2024) Pathologist [facility] Annual BMP Blood Test Abstracted Historical Provider HEALTH MAINTENANCE Final Result * Lipid panel (05/11/2023) [facility] LDL/HDL Ratio 2 0 - 4 Triglycerides [...] scores not able to be calculated. [facility] Department of Internal Medicine recommends using National [...] alternative screening schedule based on fabiano Glass., [facility] November 05, 2011 for patients with [...] scores not able to be calculated. [facility] Department of Internal Medicine recommendsusing National Osteoporosis [...] alternative screening schedule based on fabiano Glass., [facility] for patients with [facility]openia [...] Maintenance Insurance AETNA MEDICARE ADVANTAGE Care Teams Electric Gas Appliances Demonstrator Relationship Specialty Start Date End Date Frances Ledezma PA [address] [place] [phone] PCP - General Physician Healthcare Market Consultant 07/30/25
--- OUTSIDE RECORDS SUMMARY | 2025-09-10 16:22 | XMS_ITS | Encounter Summary ---
Author Organization [facility] Address [address] [address] Phone Care Team Providers Care Sprinkler Fitter Helper Name Role Phone Pcp, Unknown Primary Care Provider Unavailabl e Encounter Details Date Type Department Care Team (Late st Contact Info) Description 08/21/2022 Procedure Pass OR Admitting Dept - Virtual Department [address] [place] [address] Social History Tobacco Use Types Packs/Day Years [...] on filedocumented in this encounter Care Teams Sprinkler Fitter Helper Relationship Specialty Start Date End Date Pcp, Unknown PCP - General 07/10/22 documented as of this encounter Additional Source Comments The information contained in this document represents components of the legal health record. It is not the complete legal health record.[facility]
--- OUTSIDE RECORDS SUMMARY | 2025-09-10 16:22 | XMS_ITS | Encounter Summary ---
Author Organization [facility] Address [address] [place] [address] Care Team Providers Care Commercial Sales Consultant Name Role Phone Frances Ledezma Primary Care Provider [phone] Encounter Details Date Type Department Care Team (Late st Contact Info) Description 08/02/2025 Results Follow-Up [facility] - [facility] [address] [facility] 154 [place] [phone] aSnta Farley PA [address] [place] [address] [place] [phone] Social History Tobacco Use Types Packs/Day Years [...] on filedocumented in this encounter Care Teams Commercial Sales Consultant Relationship Specialty Start Date End Date Frances Ledezma PA [address] [place] [address] PCP - General Physician Public Policy Coordinator 07/30/25 documented as of this encounter
--- OUTSIDE RECORDS SUMMARY | 2025-09-10 16:22 | XMS_ITS | Encounter Summary ---
Author Organization [facility] Address [address] [place] [address] Care Team Providers Care Senior Software Qa Engineer Name Role Phone Frances Ledezma Primary Care Provider [phone] Encounter Details Date Type Department Care Team ([facility] st Contact Info) Description 08/22/2025 Results Follow-Up [facility] Cardiology Associates - [facility] [address] [facility] 154 [place] [phone] Santa Farley PA [address] [place] [address] [place] [phone] Social History Tobacco Use Types Packs/Day Years [...] on filedocumented in this encounter Care Teams Senior Software Qa Engineer Relationship Specialty Start Date End Date Frances Ledezma PA [address] [place] [phone] PCP - General Physician Commissary Superintendent 07/30/25 documented as of this encounter
--- OUTSIDE RECORDS SUMMARY | 2025-09-10 16:22 | XMS_ITS | Clinical Summary ---
Author Organization [facility] Address [address] [place], [place] [id number] Phone Care Team Providers Care Brim Plater Name Role Phone Pcp, Unknown Primary Care [...] O MEDICARE REPLACEMENT AETNA O MEDICARE REPLACEMENT [facility] MEDIC[facility] REPLAC[facility] AETNA PPO MEDICARE REPLACEMENT AETNA O MEDICARE REPLACEMENT AETNA PPO MEDICARE REPLACEMENT Care Teams Brim Plater Relationship Specialty Start Date End Date Pcp, Unknown PCP - General 07/10/22 Additional Source Comments The information contained in this document represents components of the legal health record. It is not the complete legal health record.[facility]
== END 2025-09-10 12:22 | disposition home or self-care (01) ==
LOC: HO.US 12:21
PROVIDERS: PCP Physician Assistant; Visit Provider Physician Assistant
DX: M79.89 Other specified soft tissue disorders (principal); M79.661 Pain in right lower leg; M79.662 Pain in left lower leg
CPT/HCPCS: 93970

== ENCOUNTER → 2025-09-10 12:24 | Outpatient (BNV) | payer MEDICARE, SELFPAY | PROVIDERS: PCP Physician Assistant; Visit Provider Radiology Diagnostic Radiology | DX: M79.661 Pain in right lower leg (principal) | CPT/HCPCS: 93970 ==